=== PATIENT | male | born 1950 | race Caucasian/White ===

== ENCOUNTER → 2018-06-02 09:49 | Outpatient (CLI) | payer OTHER, SELFPAY ==
[2018-06-02 10:56] LABS: Neutrophils Absolute Auto 5400 /uL (3000-5900)
[2018-06-02 11:07] LABS: Alanine Aminotransferase 26 IU/L (21-72); Albumin 4.4 g/dL (3.5-5.0); Albumin Globulin Ratio 1.8 (1.0-2.8); Alkaline Phosphatase 38 U/L (38-126); Aspartate Aminotransferase 30 IU/L (17-59); BUN Creatinine Ratio 13.8 (6-22); Bilirubin Total 2.5 mg/dL (0.2-1.3); Blood Urea Nitrogen 11 mg/dL (9-20); Calcium 9.9 mg/dL (8.4-10.2); Carbon Dioxide 29 mmol/L (22-32); Chloride 104 mmol/L (98-107); Cholesterol 186 mg/dL (140-199); Estimated Glomerular Filt Rate > 60.0 mL/min (>60); Globulin 2.5 g/dL (1.7-4.1); Glucose 86 mg/dL (80-110); HDL Cholesterol 71 mg/dL (40-60); HEMOLYSIS < 15 (0-50); LDL Cholesterol Calculated 99 mg/dL (<100); Sodium 143 mmol/L (137-145); Total Protein 6.9 g/dL (6.3-8.2); Triglycerides 79 mg/dL (35-150)
[2018-06-02 11:11] LABS: Add Manual Diff / Slide Review NO; Basophils Percent Auto 0.7 % (0-2); Eosinophils Percent Auto 8.4 % (2-4); Hematocrit 43.8 % (41-53); Hemoglobin 16.1 g/dL (13.5-17.5); Lymphocytes Percent Auto 16.4 % (25-40); Mean Corpuscular Hemoglobin 34.6 PG (26-34); Mean Corpuscular Volume 94.2 fL (80-100); Neutrophils Percent Auto 67.5 % (50-75); Platelet Count 296 X10^3/uL (150-400); Red Blood Cell Count 4.65 X10^6/uL (4.5-5.9); Red Cell Distribution Width 14.4 % (11.6-14.8)
[2018-06-02 11:15] LABS: Mean Corpuscular HGB Conc 36.7 % (30-36)
[2018-06-02 12:16] LABS: Thyroid Stimulating Hormone 0.89 uIU/mL (0.47-4.68)
[2018-06-02 12:18] LABS: Prostate Specific Antigen Scrn 3.06 ng/mL (0.1-4.0)
== END ==
PROVIDERS: PCP Family Medicine; Visit Provider Family Medicine
DX: E80.4 Gilbert syndrome (principal); Z12.5 Encounter for screening for malignant neoplasm of prostate
CPT/HCPCS: 36415; 80053; 80061; 84443; 85025; G0103

== ENCOUNTER → 2018-07-15 10:43 | Outpatient (CLI) | payer OTHER, SELFPAY ==
[2018-07-16 14:22] LABS: PSA Free % 21 % (calc) (> 25); PSA, Total 1.4 ng/mL (< 4.1)
== END ==
PROVIDERS: PCP Family Medicine; Visit Provider Family Medicine
DX: R97.20 Elevated prostate specific antigen [PSA] (principal)
CPT/HCPCS: 36415; 84153; 84154

== ENCOUNTER → 2019-08-17 08:21 | Outpatient (CLI) | payer OTHER, SELFPAY ==
[2019-08-17 10:12] LABS: Prostate Specific Antigen Scrn 1.35 ng/mL (0.1-4.0)
== END ==
PROVIDERS: PCP Family Medicine; Visit Provider Family Medicine
DX: R97.20 Elevated prostate specific antigen [PSA] (principal); Z12.5 Encounter for screening for malignant neoplasm of prostate
CPT/HCPCS: 36415; G0103

== ENCOUNTER → 2021-02-13 08:52 | Outpatient (CLI) | payer OTHER, SELFPAY ==
[2021-02-13 10:25] LABS: Add Manual Diff / Slide Review NO; Basophils Absolute Auto 100 /uL (0-100); Basophils Percent Auto 0.7 % (0-2); Eosinophils Absolute Auto 400 /uL (0-450); Eosinophils Percent Auto 4.9 % (2-4); Hematocrit 43.8 % (41-53); Hemoglobin 15.9 g/dL (13.5-17.5); Lymphocytes Absolute Auto 1300 /uL (1100-4500); Mean Corpuscular HGB Conc 36.3 % (30-36); Mean Corpuscular Hemoglobin 34.8 PG (26-34); Monocytes Absolute Auto 600 /uL (0-900); Neutrophils Absolute Auto 5600 /uL (1500-7000); Neutrophils Percent Auto 70.4 % (50-75); Platelet Count 242 X10^3/uL (150-400); Red Blood Cell Count 4.56 X10^6/uL (4.5-5.9); Red Cell Distribution Width 14.4 % (11.6-14.8)
[2021-02-13 10:39] LABS: Alanine Aminotransferase 19 IU/L (<50); Albumin 4.2 g/dL (3.5-5.0); Albumin Globulin Ratio 1.6 (1.0-2.8); Alkaline Phosphatase 41 U/L (38-126); Aspartate Aminotransferase 31 IU/L (17-59); BUN Creatinine Ratio 17.7 (6-22); Bilirubin Total 3.2 mg/dL (0.2-1.3); Blood Urea Nitrogen 14 mg/dL (9-20); Calcium 10.2 mg/dL (8.4-10.2); Carbon Dioxide 24 mmol/L (22-32); Chloride 107 mmol/L (98-107); Cholesterol 196 mg/dL (140-199); Estimated Glomerular Filt Rate > 60.0 mL/min (>60); Globulin 2.7 g/dL (1.7-4.1); Glucose 101 mg/dL (80-110); HDL Cholesterol 83 mg/dL (40-60); HEMOLYSIS < 15 (0-50); LDL Cholesterol Calculated 96 mg/dL (<100); Potassium 4.4 mmol/L (3.4-5.1); Sodium 139 mmol/L (137-145); Total Protein 6.9 g/dL (6.3-8.2); Triglycerides 83 mg/dL (35-150)
[2021-02-13 11:05] LABS: Prostate Specific Antigen Scrn 1.12 ng/mL (0.1-4.0)
== END ==
PROVIDERS: PCP Family Medicine; Referring Provider Family Medicine; Visit Provider Family Medicine
DX: N13.8 Other obstructive and reflux uropathy (principal); I10 Essential (primary) hypertension; Z12.5 Encounter for screening for malignant neoplasm of prostate; N40.1 Benign prostatic hyperplasia with lower urinary tract symptoms; Z13.220 Encounter for screening for lipoid disorders
CPT/HCPCS: 36415; 80053; 80061; 85025; G0103

== ENCOUNTER → 2021-03-14 10:58 | Outpatient (CLI) | payer OTHER, SELFPAY ==
[2021-03-14 11:58] LABS: Alanine Aminotransferase 21 IU/L (<50); Albumin 3.9 g/dL (3.5-5.0); Albumin Globulin Ratio 1.3 (1.0-2.8); Alkaline Phosphatase 47 U/L (38-126); Aspartate Aminotransferase 39 IU/L (17-59); BUN Creatinine Ratio 6.9 (6-22); Bilirubin Total 1.5 mg/dL (0.2-1.3); Blood Urea Nitrogen 5 mg/dL (9-20); Calcium 9.2 mg/dL (8.4-10.2); Carbon Dioxide 24 mmol/L (22-32); Chloride 110 mmol/L (98-107); Estimated Glomerular Filt Rate > 60.0 mL/min (>60); Globulin 2.9 g/dL (1.7-4.1); Glucose 88 mg/dL (80-110); HEMOLYSIS < 15 (0-50); Potassium 4.5 mmol/L (3.4-5.1); Sodium 141 mmol/L (137-145); Total Protein 6.8 g/dL (6.3-8.2)
== END ==
PROVIDERS: PCP Family Medicine; Referring Provider Family Medicine; Visit Provider Family Medicine
DX: R10.11 Right upper quadrant pain (principal)
CPT/HCPCS: 36415; 80053

== ENCOUNTER → 2021-03-19 07:55 | Outpatient (CLI) | payer OTHER, SELFPAY ==
--- NOTE | 2021-03-19 07:56 | DI.US.S_ITS ---
PROCEDURE: US ABDOMEN COMPLETE INDICATIONS: RIGHT UPPER QUADRANT PAIN TECHNIQUE: Real-time scanning was performed of the abdominal and retroperitoneal organs, with image documentation. COMPARISON: None. FINDINGS: Technically difficult examination due to overlying bowel gas. Liver: Liver is normal in size and demonstrates diffuse increased echotexture. Gallbladder: There are multiple non-mobile gallstones impacted in the gallbladder. Gallbladder wall is thickened measuring 4.2 mm in thickness. Biliary ducts: Intrahepatic bile ducts are non-dilated. Extrahepatic bile duct is not visualized. Pancreas: Obscured by overlying bowel gas. Spleen: Spleen is normal in size and homogeneous in echotexture. Kidneys: Kidneys are normal in size and echotexture. Right kidney measures 12.1 cm long; left kidney measures 13.3 cm long. No hydronephrosis or nephrolithiasis. No solid masses. There are multiple renal cysts bilaterally. The largest cyst in the right kidney appears simple and exophytic arising from the inferior pole measuring 2.7 x 2.8 x 2.9 cm. A 4.4 by 5.1 x 4.1 cm simple exophytic cyst is seen in the inferior pole of the left kidney. Aorta: Visualized aorta is normal in caliber at less than 3 cm. Iliacs: Proximal common iliac arteries are normal in caliber at less than 2.5 cm. IVC: Not visualized. Miscellaneous: No free abdominal fluid. IMPRESSION: 1. Cholelithiasis. Suspect impacted stones in the gallbladder. Gallbladder wall appears thickened. Cannot rule out acute cholecystitis. If clinically indicated, HIDA scan may be helpful. 2. Diffusely increased hepatic echotexture. This finding is most likely secondary to hepatic fatty infiltration although other hepatocellular disease may have a similar appearance. Recommend clinical correlation. 3. Common bile duct and pancreas are not visualized due to overlying bowel gas. 4. Bilateral simple appearing renal cysts. Dictated by: Bala Alicia M.D. on 03/19/2021 at 10:11 Approved by: Bala Alicia M.D. on 03/19/2021 at 10:17
== END ==
PROVIDERS: PCP Family Medicine; Referring Provider Family Medicine; Visit Provider Family Medicine
DX: R10.11 Right upper quadrant pain (principal); K80.20 Calculus of gallbladder without cholecystitis without obstruction; N28.1 Cyst of kidney, acquired
CPT/HCPCS: 76700

== ENCOUNTER → 2022-02-13 11:00 | Outpatient (CLI) | payer OTHER, SELFPAY ==
--- NOTE | 2022-02-13 11:02 | DI.US.S_ITS ---
PROCEDURE: US PERIPH VENOUS LOW EXTREM RT INDICATIONS: right leg pain and right foot swelling, possible DVT, TECHNIQUE: Real-time imaging, as well as color and pulse Doppler interrogation, were performed of the lower extremity deep veins from the inguinal ligament to the popliteal fossa. COMPARISON: None. FINDINGS: The common femoral, femoral and popliteal veins are normally compressible, and free of intraluminal thrombus. Color and pulse Doppler demonstrate normal phasic intraluminal flow. There is normal augmentation response to distal compression maneuver. IMPRESSION: Negative for deep venous thrombosis. Dictated by: Martin Olivia M.D. on 02/13/2022 at 15:04 Approved by: Martin Olivia M.D. on 02/13/2022 at 15:05
== END ==
PROVIDERS: PCP Family Medicine; Referring Provider Family Medicine; Visit Provider Family Medicine
DX: M79.604 Pain in right leg (principal); M79.89 Other specified soft tissue disorders
CPT/HCPCS: 93971

== ENCOUNTER → 2022-02-15 08:00 | Outpatient (CLI) | payer OTHER, SELFPAY ==
[2022-02-15 08:39] LABS: Add Manual Diff / Slide Review NO; Basophils Absolute Auto 100 /uL (0-100); Basophils Percent Auto 0.9 % (0-2); Eosinophils Absolute Auto 400 /uL (0-450); Eosinophils Percent Auto 7.3 % (2-4); Hematocrit 40.8 % (41-53); Hemoglobin 14.8 g/dL (13.5-17.5); Lymphocytes Absolute Auto 800 /uL (1100-4500); Lymphocytes Percent Auto 12.3 % (25-40); Mean Corpuscular HGB Conc 36.2 % (30-36); Mean Corpuscular Hemoglobin 34.1 PG (26-34); Mean Corpuscular Volume 94.3 fL (80-100); Monocytes Absolute Auto 400 /uL (0-900); Monocytes Percent Auto 6.2 % (3-14); Neutrophils Absolute Auto 4500 /uL (1500-7000); Neutrophils Percent Auto 73.3 % (50-75); Platelet Count 220 X10^3/uL (150-400); Red Blood Cell Count 4.33 X10^6/uL (4.5-5.9); Red Cell Distribution Width 15.7 % (11.6-14.8); White Blood Cell Count 6.1 X10^3/uL (4.5-11.0)
[2022-02-15 09:11] LABS: Alanine Aminotransferase 22 IU/L (<50); Albumin 4.1 g/dL (3.5-5.0); Albumin Globulin Ratio 1.6 (1.0-2.8); Alkaline Phosphatase 41 U/L (38-126); Aspartate Aminotransferase 35 IU/L (17-59); BUN Creatinine Ratio 14.9 (6-22); Blood Urea Nitrogen 10 mg/dL (9-20); Calcium 9.2 mg/dL (8.4-10.2); Carbon Dioxide 25 mmol/L (22-32); Chloride 108 mmol/L (98-107); Cholesterol 172 mg/dL (140-199); Estimated Glomerular Filt Rate > 60 mL/min (>60); Globulin 2.6 g/dL (1.7-4.1); Glucose 102 mg/dL (80-110); HDL Cholesterol 75 mg/dL (40-60); HEMOLYSIS < 15 (0-50); LDL Cholesterol Calculated 81 mg/dL (<100); Potassium 4.2 mmol/L (3.4-5.1); Sodium 137 mmol/L (137-145); Total Protein 6.7 g/dL (6.3-8.2); Triglycerides 80 mg/dL (35-150)
[2022-02-15 09:39] LABS: Prostate Specific Antigen Scrn 1.02 ng/mL (0.1-4.0)
== END ==
PROVIDERS: PCP Family Medicine; Referring Provider Family Medicine; Visit Provider Family Medicine
DX: E80.4 Gilbert syndrome (principal); R17 Unspecified jaundice; Z12.5 Encounter for screening for malignant neoplasm of prostate; N13.8 Other obstructive and reflux uropathy; N40.1 Benign prostatic hyperplasia with lower urinary tract symptoms; Z13.220 Encounter for screening for lipoid disorders
CPT/HCPCS: 36415; 80053; 80061; 85025; G0103

== ENCOUNTER → 2022-03-17 10:04 | Outpatient (CLI) | payer OTHER, SELFPAY ==
--- NOTE | 2022-03-17 | DI.US.S_ITS ---
PROCEDURE: US EXTREMITY NONVASC LOWER RT INDICATIONS: LIPOMA OF HIP/POSSIBLE TUMOR ABOVE RT SI JOINT TECHNIQUE: Real-time scanning was performed of the right lower back, with image documentation. COMPARISON: None. FINDINGS: Focused ultrasound examination of right lower back at patient's reported area of palpable lump shows no discrete soft tissue mass or fluid collection. IMPRESSION: No abnormality is seen to account for patient's symptoms. Dictated by: Salomon Kauffman M.D. on 03/17/2022 at 12:41 Approved by: Salomon Kauffman M.D. on 03/17/2022 at 12:45
== END ==
PROVIDERS: PCP Family Medicine; Referring Provider Family Medicine; Visit Provider Family Medicine
DX: D17.20 Benign lipomatous neoplasm of skin and subcutaneous tissue of unspecified limb (principal)
CPT/HCPCS: 76882

== ENCOUNTER → 2023-03-17 08:04 | Outpatient (CLI) | payer OTHER, SELFPAY ==
[2023-03-17 09:41] LABS: Alanine Aminotransferase 18 IU/L (<50); Albumin 3.3 g/dL (3.5-5.0); Albumin Globulin Ratio 1.2 (1.0-2.8); Alkaline Phosphatase 68 U/L (38-126); Aspartate Aminotransferase 31 IU/L (17-59); BUN Creatinine Ratio 18.8 (6-22); Bilirubin Total 1.8 mg/dL (0.2-1.3); Blood Urea Nitrogen 13 mg/dL (9-20); Calcium 8.8 mg/dL (8.4-10.2); Carbon Dioxide 26 mmol/L (22-32); Chloride 103 mmol/L (98-107); Estimated Glomerular Filt Rate > 60 mL/min (>60); Globulin 2.7 g/dL (1.7-4.1); Glucose 92 mg/dL (80-110); HEMOLYSIS 18 (0-50); Potassium 4.1 mmol/L (3.4-5.1); Sodium 137 mmol/L (137-145)
[2023-03-17 10:06] LABS: Prostate Specific Antigen Scrn 4.35 ng/mL (0.1-4.0)
[2023-03-17 10:44] LABS: Hematocrit 35.6 % (41-53); Hemoglobin 12.7 g/dL (13.5-17.5); Mean Corpuscular HGB Conc 35.8 % (30-36); Mean Corpuscular Hemoglobin 32.8 PG (26-34); Mean Corpuscular Volume 91.7 fL (80-100); Platelet Count 469 X10^3/uL (150-400); Red Blood Cell Count 3.88 X10^6/uL (4.5-5.9); Red Cell Distribution Width 15.6 % (11.6-14.8); White Blood Cell Count 15.9 X10^3/uL (4.5-11.0)
[2023-03-17 10:50] LABS: Add Manual Diff / Slide Review YES
[2023-03-17 11:04] LABS: Neutrophils Absolute Manual 13515 /uL (3000-5900); Total Cells Counted 100
[2023-03-17 11:05] LABS: RBC Morphology Normal Morphology
== END ==
PROVIDERS: PCP Family Medicine; Referring Provider Family Medicine; Visit Provider Family Medicine
DX: Z12.5 Encounter for screening for malignant neoplasm of prostate; E78.5 Hyperlipidemia, unspecified; E80.4 Gilbert syndrome
CPT/HCPCS: 36415; 80053; 85007; 85025; G0103

== ENCOUNTER → 2023-06-02 08:19 | Outpatient (CLI) | payer OTHER, SELFPAY ==
[2023-06-04 07:35] LABS: PSA Free % 23.8 % (.); PSA, Total 1.3 ng/mL (0.0-4.0)
== END ==
PROVIDERS: PCP Family Medicine; Referring Provider Specialist; Visit Provider Specialist
DX: N13.8 Other obstructive and reflux uropathy (principal); N40.1 Benign prostatic hyperplasia with lower urinary tract symptoms; R97.20 Elevated prostate specific antigen [PSA]
CPT/HCPCS: 36415; 84153; 84154

== ENCOUNTER → 2023-06-16 15:47 | Outpatient (CLI) | payer OTHER, SELFPAY | PROVIDERS: PCP Family Medicine; Visit Provider Specialist | DX: N40.1 Benign prostatic hyperplasia with lower urinary tract symptoms (principal); N13.8 Other obstructive and reflux uropathy | CPT/HCPCS: 51798; 81002; 87086; 99214 ==

== ENCOUNTER → 2023-07-02 07:52 | Outpatient (CLI) | payer OTHER, SELFPAY ==
[2023-07-02 08:15] LABS: Add Manual Diff / Slide Review NO; Basophils Absolute Auto 100 /uL (0-100); Basophils Percent Auto 1.3 % (0-2); Eosinophils Absolute Auto 400 /uL (0-450); Hematocrit 40.2 % (41-53); Hemoglobin 14.3 g/dL (13.5-17.5); Lymphocytes Absolute Auto 1400 /uL (1100-4500); Mean Corpuscular HGB Conc 35.7 % (30-36); Mean Corpuscular Hemoglobin 31.8 PG (26-34); Mean Corpuscular Volume 89.2 fL (80-100); Monocytes Absolute Auto 800 /uL (0-900); Monocytes Percent Auto 7.4 % (3-14); Neutrophils Absolute Auto 8000 /uL (1500-7000); Neutrophils Percent Auto 74.3 % (50-75); Platelet Count 251 X10^3/uL (150-400); Red Blood Cell Count 4.51 X10^6/uL (4.5-5.9); Red Cell Distribution Width 18.4 % (11.6-14.8); White Blood Cell Count 10.7 X10^3/uL (4.5-11.0)
== END ==
PROVIDERS: PCP Family Medicine; Referring Provider Family Medicine; Visit Provider Family Medicine
DX: D50.9 Iron deficiency anemia, unspecified (principal)
CPT/HCPCS: 36415; 85025

== ENCOUNTER → 2023-08-19 08:22 | Outpatient (CLI) | payer OTHER, SELFPAY ==
[2023-08-19 09:43] LABS: Prostate Specific Antigen 1.53 ng/mL (0.10-4.00)
== END ==
PROVIDERS: PCP Family Medicine; Referring Provider Specialist; Visit Provider Specialist
DX: R97.20 Elevated prostate specific antigen [PSA] (principal); Z87.448 Personal history of other diseases of urinary system; N40.1 Benign prostatic hyperplasia with lower urinary tract symptoms; N13.8 Other obstructive and reflux uropathy
CPT/HCPCS: 36415; 84153

== ENCOUNTER → 2023-08-27 09:25 | Outpatient (CLI) | payer OTHER, SELFPAY | PROVIDERS: PCP Family Medicine; Visit Provider Specialist | DX: N40.1 Benign prostatic hyperplasia with lower urinary tract symptoms (principal); N13.8 Other obstructive and reflux uropathy; Z87.448 Personal history of other diseases of urinary system; Z87.898 Personal history of other specified conditions | CPT/HCPCS: 51798; 81002; 87086; 99213 ==

== ENCOUNTER → 2023-11-04 07:54 | Outpatient (CLI) | payer OTHER, SELFPAY ==
[2023-11-04 09:08] LABS: Add Manual Diff / Slide Review NO; Basophils Absolute Auto 0 /uL (0-100); Basophils Percent Auto 0.2 % (0-2); Eosinophils Absolute Auto 100 /uL (0-450); Hematocrit 33.1 % (41-53); Hemoglobin 11.7 g/dL (13.5-17.5); Lymphocytes Absolute Auto 800 /uL (1100-4500); Mean Corpuscular HGB Conc 35.4 % (30-36); Mean Corpuscular Hemoglobin 29.8 PG (26-34); Mean Corpuscular Volume 84.4 fL (80-100); Monocytes Absolute Auto 800 /uL (0-900); Monocytes Percent Auto 5.4 % (3-14); Neutrophils Absolute Auto 12400 /uL (1500-7000); Neutrophils Percent Auto 87.4 % (50-75); Platelet Count 446 X10^3/uL (150-400); Red Blood Cell Count 3.92 X10^6/uL (4.5-5.9); White Blood Cell Count 14.1 X10^3/uL (4.5-11.0)
[2023-11-04 09:25] LABS: Erythrocyte Sedimentation Rate 36 MM/HR (0-15)
[2023-11-04 09:48] LABS: Vitamin D 25 Hydroxy (D3) 39.7 ng/mL (30.0-100.0)
[2023-11-04 10:03] LABS: HEMOLYSIS < 15 (0-50); Iron 54 ug/dL (49-181)
[2023-11-04 10:05] LABS: Alanine Aminotransferase 11 IU/L (<50); Albumin 3.7 g/dL (3.5-5.0); Albumin Globulin Ratio 1.5 (1.0-2.8); Alkaline Phosphatase 50 U/L (38-126); Aspartate Aminotransferase 19 IU/L (17-59); BUN Creatinine Ratio 27.1 (6-22); Bilirubin Total 2.2 mg/dL (0.2-1.3); Blood Urea Nitrogen 16 mg/dL (9-20); Calcium 9.4 mg/dL (8.4-10.2); Carbon Dioxide 22 mmol/L (22-32); Chloride 106 mmol/L (98-107); Cholesterol 127 mg/dL (140-199); Creatine Kinase < 20 U/L (55-170); Estimated Glomerular Filt Rate > 60 mL/min (>60); Globulin 2.5 g/dL (1.7-4.1); Glucose 101 mg/dL (80-110); HDL Cholesterol 33 mg/dL (40-60); HEMOLYSIS < 15 (0-50); LDL Cholesterol Calculated 58 mg/dL (<100); Potassium 4.1 mmol/L (3.4-5.1); Sodium 136 mmol/L (137-145); Total Protein 6.2 g/dL (6.3-8.2); Triglycerides 178 mg/dL (35-150)
[2023-11-04 10:14] LABS: Percent Iron Saturation 19 % (20-50); Total Iron Binding Capacity 290 ug/dL (261-462); Transferrin 225 mg/dL (206-381)
[2023-11-04 10:36] LABS: TSH w/ Reflex to FT4 2.37 uIU/mL (0.47-4.68)
[2023-11-04 10:40] LABS: Ferritin 485 ng/mL (18-464)
[2023-11-05 17:05] LABS: Hep C Virus Ab w/Reflex Quant NEGATIVE s/c (NEGATIVE)
== END ==
PROVIDERS: PCP Family Medicine; Referring Provider Family Medicine; Visit Provider Family Medicine
DX: M79.10 Myalgia, unspecified site (principal); D50.9 Iron deficiency anemia, unspecified; R17 Unspecified jaundice; E80.4 Gilbert syndrome; Z13.220 Encounter for screening for lipoid disorders; G43.909 Migraine, unspecified, not intractable, without status migrainosus; Z11.59 Encounter for screening for other viral diseases
CPT/HCPCS: 36415; 80053; 80061; 82306; 82550; 82728; 83540; 83550; 83735; 84443; 85025; 85651; 86803

== ENCOUNTER → 2023-12-01 09:42 | Outpatient (CLI) | payer OTHER, SELFPAY ==
[2023-12-01 10:23] LABS: Appearance Urine UA SL CLOUDY; Bilirubin Urine UA NEGATIVE (NEGATIVE); Color Urine UA YELLOW; Glucose Urine UA NEGATIVE (Negative); Ketones Urine UA 2+ (NEGATIVE); Leukocyte Esterase Urine UA TRACE (NEGATIVE); Nitrite Urine UA NEGATIVE (Negative); Occult Blood Urine UA 2+ (Negative); Protein Urine UA 2+ (Negative); Specific Gravity Urine UA 1.025 (1.000-1.035); pH Urine UA 6.5 (4.5-8.0)
[2023-12-01 10:32] LABS: Reticulocyte Count, Percent 3.2 % (0.9-2.6)
[2023-12-01 10:33] LABS: Add Manual Diff / Slide Review NO; Basophils Absolute Auto 100 /uL (0-100); Basophils Percent Auto 0.4 % (0-2); Eosinophils Absolute Auto 200 /uL (0-450); Eosinophils Percent Auto 0.9 % (2-4); Hematocrit 37.5 % (41-53); Hemoglobin 12.8 g/dL (13.5-17.5); Lymphocytes Absolute Auto 1300 /uL (1100-4500); Lymphocytes Percent Auto 6.1 % (25-40); Mean Corpuscular Hemoglobin 27.3 PG (26-34); Mean Corpuscular Volume 80.3 fL (80-100); Monocytes Absolute Auto 1500 /uL (0-900); Monocytes Percent Auto 6.7 % (3-14); Neutrophils Absolute Auto 18800 /uL (1500-7000); Neutrophils Percent Auto 85.9 % (50-75); Platelet Count 541 X10^3/uL (150-400); Red Blood Cell Count 4.67 X10^6/uL (4.5-5.9); White Blood Cell Count 21.9 X10^3/uL (4.5-11.0)
[2023-12-01 10:38] LABS: Bacteria Urine Occasional (0-1); RBC Urine 5-10/HPF (0-5/HPF); Squamous Epithelial Cell Urine None Seen (0-5/HPF); Urine Volume 10mL (spun); WBC Urine 10-30/HPF (0-5/HPF)
[2023-12-01 10:39] LABS: Culture Indicated Urine Specimen Cultured; Mucus Urine 2+ (Negative)
[2023-12-01 10:45] LABS: C-Reactive Protein Quant 4.7 mg/dL (<1.0); Lactate Dehydrogenase 120 U/L (120-246)
[2023-12-01 10:46] LABS: Rheumatoid Factor < 8.6 IU/mL (<12.0)
[2023-12-01 10:56] LABS: Erythrocyte Sedimentation Rate 38 MM/HR (0-15)
[2023-12-02 03:52] LABS: Haptoglobin 188 mg/dL (34-355)
[2023-12-03 20:12] LABS: CCP Antibodies IgG/IgA 0 units (0-19)
[2023-12-04 16:11] LABS: ANA Screen, IFA Negative (.)
== END ==
PROVIDERS: PCP Family Medicine; Referring Provider Family Medicine; Visit Provider Family Medicine
DX: D64.9 Anemia, unspecified (principal); M79.10 Myalgia, unspecified site; R17 Unspecified jaundice
CPT/HCPCS: 36415; 81001; 83010; 83615; 85025; 85045; 85651; 86038; 86140; 86200; 86430; 87086

== ENCOUNTER → 2023-12-21 09:57 | Outpatient (CLI) | payer OTHER, SELFPAY ==
--- NOTE | 2023-12-21 | DI.CT.S_ITS ---
PROCEDURE: CT CHEST ABD PEL W CON INDICATIONS: Abnormal weight loss TECHNIQUE: After the administration of intravenous contrast, 5 mm thick sections acquired from the lung apices to the symphysis. 5 mm coronal and sagittal reformats were performed, with additional 7 mm MIP reformats through the lungs. For radiation dose reduction, the following was used: automated exposure control, adjustment of mA and/or kV according to patient size. COMPARISON: None. FINDINGS: Image quality: Excellent. CHEST: Lower Neck: No enlarged lymph nodes. Thyroid: No thyroid nodules which require sonographic follow up, per consensus guidelines. Axillae: No enlarged lymph nodes. Chest Wall: Unremarkable. Lungs and Pleura: Jdyj-ha-wtxlmcll right pleural effusion. 2 mm right lower lobe pulmonary nodule, image 174/3, indeterminate. 1 mm left upper lobe pulmonary nodule, image 90/3, also indeterminate. Heart: Heart size is normal. [id number] pericardial effusion. Severe coronary artery calcifications. Thoracic Vessels: Enlargement of the right main pulmonary artery suggest the possibility of pulmonary arterial hypertension. Aorta is of normal caliber. Mediastinum and Vianey: No enlarged lymph nodes. Esophagus: No wall thickening. Small hiatal hernia. Reflux into the distal esophagus of contrast.. ABDOMEN: Liver: No solid mass. Gallbladder: There is a calcified gallstone present in the gallbladder. The gallbladder is decompressed. Subjacent to this calcified gallstone are multiple foci of air. These may be present within stones in the gallbladder. Biliary ducts: No biliary dilation. Pancreas: No ductal dilation. Spleen: Splenomegaly. Spleen measures 15.1 x 8.0 x 18.1 cm. Adrenal Glands: No adrenal nodules. Kidneys and Ureters: No hydronephrosis. No solid mass. No complex renal cystic lesion which requires follow up. Stomach and Bowel: Normal colonic caliber, without significant wall thickening. Peritoneum: No abnormal intraperitoneal fluid. No free air. Ventral Wall: No significant ventral hernia. Abdominal Nodes: No retroperitoneal or mesenteric adenopathy by size criteria. Vessels: Aorta and inferior vena cava are normal in size. PELVIS: Pelvic Organs: Prostate enlargement. Bladder: There are numerous polypoid bladder masses consistent with multifocal bladder carcinoma. The largest is a left lateral wall mass which measures approximately 1.9 x 1.8 x 2.3 cm. There are perhaps 10 different polypoid bladder lesions, many of which are tiny. Pelvic Nodes: No enlarged lymph nodes. Miscellaneous: No inguinal hernias are seen. Bones: Lytic destructive lesion involving the right sacrum measuring 5.8 x 3.6 x 5.5 cm with involvement of the right S1 and S2 sacral alae and nerve root impingement. IMPRESSION: 1. There are numerous polypoid bladder masses, consistent with multifocal bladder cancer. 2. Large right sacral metastatic destructive lesion with involvement of S1 on S2 in impingement on these nerve roots. 3. Fairly impressive splenomegaly. 4. Cholelithiasis. 5. Small areas of air immediately anterior to the right lobe of the liver are presumed to be related to the gallbladder. 5. Nlgp-pn-prsdosyy right pleural effusion. 6. Jxdj-yb-wzeliooq pericardial effusion and severe coronary artery calcifications. 7. Question pulmonary arterial hypertension. 8. Small hiatal hernia with gastroesophageal reflux. Dictated by: Crow Arango M.D. on 12/21/2023 at 15:17 Approved by: Crow Arango M.D. on 12/21/2023 at 15:35
[2023-12-21 10:14] LABS: Add Manual Diff / Slide Review NO; Basophils Absolute Auto 100 /uL (0-100); Basophils Percent Auto 0.4 % (0-2); Eosinophils Absolute Auto 200 /uL (0-450); Eosinophils Percent Auto 1.3 % (2-4); Hemoglobin 11.6 g/dL (13.5-17.5); Lymphocytes Absolute Auto 800 /uL (1100-4500); Lymphocytes Percent Auto 5.8 % (25-40); Mean Corpuscular HGB Conc 34.2 % (30-36); Mean Corpuscular Hemoglobin 26.8 PG (26-34); Mean Corpuscular Volume 78.5 fL (80-100); Monocytes Absolute Auto 1100 /uL (0-900); Monocytes Percent Auto 8.2 % (3-14); Neutrophils Absolute Auto 11600 /uL (1500-7000); Neutrophils Percent Auto 84.3 % (50-75); Platelet Count 391 X10^3/uL (150-400); Red Blood Cell Count 4.33 X10^6/uL (4.5-5.9); Red Cell Distribution Width 17.4 % (11.6-14.8); White Blood Cell Count 13.8 X10^3/uL (4.5-11.0)
[2023-12-21 10:30] LABS: Estimated Glomerular Filt Rate > 60 mL/min (>60)
[2023-12-21 10:37] LABS: Alanine Aminotransferase 8 IU/L (<50); Albumin Globulin Ratio 1.7 (1.0-2.8); Alkaline Phosphatase 53 U/L (38-126); Aspartate Aminotransferase 14 IU/L (17-59); BUN Creatinine Ratio 40.5 (6-22); Bilirubin Total 1.7 mg/dL (0.2-1.3); Blood Urea Nitrogen 32 mg/dL (9-20); Calcium 9.7 mg/dL (8.4-10.2); Carbon Dioxide 28 mmol/L (22-32); Chloride 103 mmol/L (98-107); Estimated Glomerular Filt Rate > 60 mL/min (>60); Globulin 2.3 g/dL (1.7-4.1); Glucose 122 mg/dL (80-110); HEMOLYSIS < 15 (0-50); Potassium 4.5 mmol/L (3.4-5.1); Sodium 136 mmol/L (137-145); Total Protein 6.3 g/dL (6.3-8.2)
== END ==
PROVIDERS: Radiology Diagnostic Radiology; PCP Family Medicine; Referring Provider Family Medicine; Visit Provider Family Medicine
DX: C79.51 Secondary malignant neoplasm of bone (principal); C80.1 Malignant (primary) neoplasm, unspecified; N32.9 Bladder disorder, unspecified; J90 Pleural effusion, not elsewhere classified; R16.1 Splenomegaly, not elsewhere classified; Z01.812 Encounter for preprocedural laboratory examination; K80.20 Calculus of gallbladder without cholecystitis without obstruction; I31.39 Other pericardial effusion (noninflammatory); R63.4 Abnormal weight loss; D75.839 Thrombocytosis, unspecified; D72.828 Other elevated white blood cell count; D64.9 Anemia, unspecified; R53.83 Other fatigue; N40.0 Benign prostatic hyperplasia without lower urinary tract symptoms; I25.10 Atherosclerotic heart disease of native coronary artery without angina pectoris; K44.9 Diaphragmatic hernia without obstruction or gangrene; K21.9 Gastro-esophageal reflux disease without esophagitis
CPT/HCPCS: 36415; 71260; 74177; 80053; 82565; 85025; Q9967

== ENCOUNTER → 2023-12-29 08:56 | Outpatient (CLI) | payer OTHER, SELFPAY | PROVIDERS: PCP Family Medicine; Visit Provider Specialist | DX: C67.9 Malignant neoplasm of bladder, unspecified (principal); C79.51 Secondary malignant neoplasm of bone; N32.89 Other specified disorders of bladder | CPT/HCPCS: 87086 ==

== ENCOUNTER 2024-01-02 07:56 | Inpatient (IN) | payer OTHER, SELFPAY ==
[2024-01-02] VITALS (11 sets, daily range): BP systolic 92–103; BP diastolic 55–64; PULSE 93–103; RESP 13–20; TEMP 37.1; O2SAT 92–100; BMI 23.6
--- NOTE | 2024-01-02 07:57 | DI.CT.S_ITS ---
PROCEDURE: CT HEAD/BRAIN WO CON INDICATIONS: Confusion, fall TECHNIQUE: Noncontrast 4.5 mm thick angled axial sections acquired from the foramen magnum to the vertex, with coronal and sagittal reformats. For radiation dose reduction, the following was used: automated exposure control, adjustment of mA and/or kV according to patient size. COMPARISON: None. FINDINGS: Image quality: Diagnostic. CSF spaces: Basal cisterns are patent. No extra-axial fluid collections. The ventricles are symmetric in size and shape. Brain: No intracranial bleeds or masses. There is cerebral volume loss for age, with resultant ventricular and sulcal prominence. There are periventricular and deep white matter chronic small vessel ischemic changes. There is intracranial internal carotid artery atherosclerosis. Skull and face: Calvarium and visualized facial bones appear intact, without suspicious lesions. Sinuses: Trace fluid or mucus at the base of both maxillary sinuses. Visualized sinuses and mastoids are otherwise clear. IMPRESSION: 1. No CT evidence of acute intracranial trauma. 2. No significant soft tissue injury or underlying fracture. Dictated by: Thais Natarajan M.D. on 01/02/2024 at 8:58 Approved by: Thais Natarajan M.D. on 01/02/2024 at 9:01
--- NOTE | 2024-01-02 08:28 | ED.FALL ---
HPI - Fall General Chief Complaint: Fall Stated Complaint: GLF hit head Time Seen by Provider: 01/02/24 07:56 Source: family and EMS Mode of arrival: EMS Limitations: other (Confusion) History of Present Illness HPI Narrative: Patient is a 73-year-old male. Is currently undergoing workup for bladder cancer. Is not currently receiving any specific treatment. Is here for evaluation this morning with family by EMS for evaluation of increasing confusion over the past several days/weeks and a fall this morning. This was an unwitnessed fall. He was getting out of bed most likely to go to the bathroom where he fell and did hit his head on the wall. There was no reported loss of consciousness. Patient is unable to provide any HPI. He reports no headache, or any other associated symptoms. Potentially some concern about a urinary tract infection as he has had a increase in urination recently. He also had a recent cystoscopy. There is concern about the family with the patient being able to take care of himself at home. Related Data Home Medications Medication Instructions Recorded Confirmed aspirin 81 mg tablet,delayed 81 mg PO DAILY 01/08/22 12/29/23 release naproxen sodium 220 mg tablet 440 mg PO ONCE PRN 03/26/23 12/29/23 vitamins A,C,S-llvh-sytlqm 4,296 1 cap PO BID 03/26/23 12/29/23 mcg-226 mg-90 mg capsule (ICaps AREDS) tamsulosin 0.4 mg capsule 0.4 mg PO DAILY 10/27/23 12/29/23 Previous Rx's Medication Instructions Recorded triamcinolone acetonide 0.1 % See Rx Instructions .Route 01/08/22 topical cream .COMPLEX #30 grams sumatriptan succinate 100 mg tablet 100 mg PO ONCE #12 tabs 04/15/23 sumatriptan succinate 6 mg/0.5 mL 6 mg (0.5 mL) SUBCUT Q1-4H #5 mL 08/21/23 subcutaneous pen injector omeprazole 20 mg capsule,delayed See Rx Instructions .Route 09/28/23 release .COMPLEX #90 caps propranolol 40 mg tablet See Rx Instructions .Route 11/13/23 .COMPLEX #180 tabs duloxetine 60 mg capsule,delayed 60 mg PO DAILY #30 caps 12/09/23 release peg 3350-electrolytes 236 240 ml PO Q10M #4,000 mL 12/17/23 gram-22.74 gram-6.74 gram-5.86 gram solution (Golytely) oxycodone 5 mg tablet 5 mg PO BID PRN pain #60 tabs 12/22/23 Allergies Allergy/AdvReac Type Severity Reaction Status Date / Time Penicillins [PENICILLINS] Allergy Severe BREATHING Verified 12/22/23 11:02 PROBLEMS AND RASH Review of Systems Review of Systems ROS Unobtainable: Unobtainable due to mental condition Patient History Medical History Microscopic hematuria Malignant neoplasm of bladder neck History of right inguinal hernia (04/04/11) History of elevated PSA Microcytic anemia Somatic dysfunction of lower extremity Lipoma of hip Anxiety about health Right leg pain Elevated bilirubin Gilbert syndrome Hx of hematuria BPH w urinary obs/LUTS History of colon polyps Seasonal allergies Migraines Foot pain (~1989) Rosacea Mumps Measles Chicken pox GERD (gastroesophageal reflux disease) (~1999) Surgical History Anesthesia History of skin surgery (~2012) Retinal detachment History of cataract removal with insertion of prosthetic lens (~2013) History of cataract removal with insertion of prosthetic lens (~2012) Status post hernia repair (~1969) Family History Father No problems noted. Mother No problems noted. Social History Smoking Status: Former smoker Smoking Status: Former smoker alcohol intake frequency: 0-2 drinks per day Substance Use Type: marijuana Exam Initial Vital Signs Initial Vital Signs: Vital Signs Pulse Rate 103 H 01/02/24 08:00 Pulse Oximetry 92 01/02/24 08:00 Const General: cooperative, No in distress, No combative and No disheveled HENMT Head: normal to inspection, normocephalic and No contusion Resp Effort & Inspection: normal respiratory effort Auscultation: clear to auscultation bilaterally Cardio Rate: regular rate Rhythm: regular rhythm GI Inspection: normal to inspection and non-distended Neuro General: patient alert, patient awake and moves all extremities Other: Patient was confused about date, location, why he is here. Extrem Other: No gross deformities. Moves all extremities without apparent discomfort Scores GCS Zane coma scale eye opening: Spontaneous [place] coma scale verbal response: Confused [place] coma scale motor response: Obey commands [place] coma scale total score: 14 Course Orders Ordered: ED Orders 01/02/24 07:57 CT head/brain wo con Stat 01/02/24 07:58 EKG-12 Lead Stat 01/02/24 08:28 Consult to [facility] [place] [facility] Stat 01/02/24 09:15 Urinalysis and Microscopic Stat Urine Culture Stat Urine Drug Screen, Rapid Stat 01/02/24 09:20 Complete Blood Count AUTO DIFF Stat Comprehensive Metabolic Panel Stat Ethanol (ETOH) Stat Lactate (Lactic Acid) Stat Lipase Stat Procalcitonin Stat 01/02/24 09:58 Blood Culture Stat 01/02/24 10:01 XR chest 1V Stat 01/02/24 10:06 Consult to Physician Stat 01/02/24 10:07 Consult to Physician Stat 01/02/24 10:13 Type and Screen Stat Sodium Chloride (Normal Saline 0.9%) 1,000 mls @ 125 mls/hr IV CONT ZOHRA Last Admin: 01/02/24 10:04 Dose: 125 mls/hr Documented By: BRII Sodium Chloride (Sodium Chloride 0.9% Flush) 10 ml IV PRN PRN PRN Reason: Flush Last Admin: 01/02/24 10:06 Dose: 10 ml Documented By: Admin: 01/02/24 10:05 Dose: 10 ml Documented By: BRII Sodium Chloride (Sodium Chloride 0.9% Flush) 10 ml IV BID ZOHRA Discontinued Medications Ceftriaxone Sodium 1,000 mg/ (Sodium Chloride) 100 mls @ 200 mls/hr IV NOW ONE Stop: 01/02/24 09:52 Last Infusion: 01/02/24 10:44 Dose: Infused Documented By: Admin: 01/02/24 10:04 Dose: 200 mls/hr Documented By: BIRI Vital Signs Vital signs: Vital Signs - 8 hr 01/02/24 08:00 01/02/24 08:01 01/02/24 08:01 Temperature Pulse Rate 103 H 103 H Respiratory Rate Blood Pressure 93/64 Pulse Oximetry 92 99 Oxygen Delivery Method 01/02/24 08:06 01/02/24 08:06 01/02/24 08:13 Temperature 98.8 F Pulse Rate 102 H 103 H Respiratory Rate 17 16 Blood Pressure 92/64 92/64 Pulse Oximetry 99 99 Oxygen Delivery Method Room Air 01/02/24 08:39 01/02/24 08:40 01/02/24 08:40 Temperature Pulse Rate 103 H 103 H Respiratory Rate 19 15 Blood Pressure 103/61 Pulse Oximetry 97 98 Oxygen Delivery Method 01/02/24 09:00 01/02/24 09:30 01/02/24 10:00 Temperature Pulse Rate 102 H 98 H 97 H Respiratory Rate 13 17 20 Blood Pressure Pulse Oximetry 99 99 100 Oxygen Delivery Method MDM - Fall Lab Data Attestation: I reviewed the patient's lab results. 01/02/24 09:20 01/02/24 09:20 Labs: Lab Results 01/02/24 01/02/24 01/02/24 Range/Units 09:15 09:15 09:20 WBC 17.3 H (4.5-11.0) X10^3/uL RBC 3.30 L (4.5-5.9) X10^6/uL Hgb 8.7 L (13.5-17.5) g/dL Hct 25.2 L (41-53) % MCV 76.6 L (80-100) fL MCH 26.3 (26-34) PG MCHC 34.3 (30-36) % RDW 17.6 H (11.6-14.8) % Plt Count 293 (150-400) X10^3/uL Neut % (Auto) 90.0 H (50-75) % Lymph % (Auto) 3.3 L (25-40) % [place] % (Auto) 6.3 (3-14) % Eos % (Auto) 0.2 L (2-4) % Baso % (Auto) 0.2 (0-2) % Neut # (Auto) 10286 H (5700-2863) /uL Lymph # (Auto) 600 L (4014-1046) /uL [place] # (Auto) 1100 H (0-900) /uL Eos # (Auto) 0 (0-450) /uL Baso # (Auto) 0 (0-100) /uL Sodium 132 L (137-145) mmol/L Potassium 4.6 (3.4-5.1) mmol/L Chloride 100 (98-107) mmol/L Carbon Dioxide 28 (22-32) mmol/L BUN 18 (9-20) mg/dL Creatinine 0.70 (0.66-1.25) mg/dL Estimated GFR > 60 (>60) mL/min BUN/Creatinine Ratio 25.7 H (6-22) Glucose 105 (80-110) mg/dL Lactate 1.2 (0.7-2.1) mmol/L Calcium 9.0 (8.4-10.2) mg/dL Total Bilirubin 1.5 H (0.2-1.3) mg/dL AST 19 (17-59) IU/L ALT 12 (<50) IU/L Alkaline Phosphatase 79 (38-126) U/L Total Protein 6.2 L (6.3-8.2) g/dL Albumin 3.6 (3.5-5.0) g/dL Globulin 2.6 (1.7-4.1) g/dL Albumin/Globulin Ratio 1.4 (1.0-2.8) Lipase 46 (23-300) U/L Procalcitonin 0.27 (<0.5) ng/mL Urine Color Yellow Urine Appearance Sl cloudy Urine pH 6.0 Normal (4.5-8.0) Ur Specific [place] 1.020 (1.000-1.035) Urine Protein 2+ H (Negative) Urine Glucose (UA) Negative (Negative) g/dL Urine Ketones Trace H (NEGATIVE) Urine Occult Blood 3+ H (Negative) Urine Nitrate Negative (Negative) Urine Bilirubin Negative (NEGATIVE) Urine Urobilinogen 1.0 (0.2) E.U./dL Ur Leukocyte Esterase Trace H (NEGATIVE) Urine RBC 30-100/hpf H (0-5/HPF) Urine WBC 5-10/hpf H (0-5/HPF) Ur Squamous Epith Cells 0-1 /hpf (0-5/HPF) Amorphous Sediment 2+ Urine Bacteria Moderate (10-30) H (None) Urine Mucus 1+ H (Negative) Ur Culture Indicated? Specimen cultured Vol Urine Centrifuged 10ml (spun) U Opiates 300ng/mL cut Positive H (Negative) Ur Oxycodone Screen Positive H (Negative) Urine Methadone Screen Negative (Negative) Ur Barbiturates Screen Negative (Negative) U Tricyclic Antidepress Negative (Negative) Ur Phencyclidine Scrn Negative (Negative) Ur Amphetamines Screen Negative (Negative) U Methamphetamines Scrn Negative (Negative) Ur MDMA Scrn (Ecstasy) Negative (Negative) U Benzodiazepines Scrn Negative (Negative) Urine Cocaine Screen Negative (Negative) U Marijuana (THC) Screen Negative (Negative) Urine Specific [place] Normal (Normal) Ethyl Alcohol < 10 ( - 10) mg/dL Ur Creatinine Normal (Normal) Imaging Data CT scan - head: Radiologist's Impression: PROCEDURE: CT HEAD/BRAIN WO CON INDICATIONS: Confusion, fall TECHNIQUE: Noncontrast 4.5 mm thick angled axial sections acquired from the foramen magnum to the vertex, with coronal and sagittal reformats. For radiation dose reduction, the following was used: automated exposure control, adjustment of mA and/or kV according to patient size. COMPARISON: None. FINDINGS: Image quality: Diagnostic. CSF spaces: Basal cisterns are patent. No extra-axial fluid collections. The ventricles are symmetric in size and shape. Brain: No intracranial bleeds or masses. There is cerebral volume loss for age, with resultant ventricular and sulcal prominence. There are periventricular and deep white matter chronic small vessel ischemic changes. There is intracranial internal carotid artery atherosclerosis. Skull and face: Calvarium and visualized facial bones appear intact, without suspicious lesions. Sinuses: Trace fluid or mucus at the base of both maxillary sinuses. Visualized sinuses and mastoids are otherwise clear. IMPRESSION: 1. No CT evidence of acute intracranial trauma. 2. No significant soft tissue injury or underlying fracture. Chest x-ray: Radiologist's Impression: PROCEDURE: XR CHEST 1V INDICATIONS: eval for pna TECHNIQUE: One view of the chest was acquired. COMPARISON: [facility], CR, XR CHEST 1VW, 02/26/2016, 15:14. [facility], CT, CT HEAD/BRAIN WO CON, 01/02/2024, 8:10. FINDINGS: Surgical changes and devices: None. Lungs and pleura: There is a small right-sided pleural effusion. On this semiupright study, no large pneumothorax can be seen. Low lung volumes are noted. This causes a crowded appearance to the lung markings and limits evaluation. Mediastinum: Mediastinal contours appear normal. Heart size is normal. Bones and chest wall: No suspicious bony lesions. Age-appropriate bony degenerative changes are seen. Overlying soft tissues appear unremarkable. IMPRESSION: Small right-sided pleural effusion. Low lung volumes. ECG Data Attestation: I personally reviewed and interpreted this ECG as follows: Interpretation: Sinus tachycardia Ventricular rate of 101 Left axis deviation Normal QRS No ST T wave changes MDM Narrative Medical decision making narrative: Patient is confused. GCS of 15. No chest pain. No shortness of breath. Head CT is unremarkable. Urinalysis is consistent with a urinary tract infection. He also has a leukocytosis. Lactate is normal. Not hypotensive. Blood cultures obtained. Antibiotics administered. Discussed the case with the family. Admission to the hospital warranted for his UTI and confusion. Discussed the case with Dr. Torres he was on-call for the patient's primary doctor. Will admit for further evaluation and treatment. Discharge Plan Departure Patient Disposition: Admitted As Inpatient Clinical Impression: Altered mental status, Urinary tract infection, Bladder cancer Admit Date/Time: 01/02/24 10:19 Admit Provider: Asuncion Torres
[2024-01-02 09:26] LABS: Appearance Urine UA SL CLOUDY; Bilirubin Urine UA NEGATIVE (NEGATIVE); Color Urine UA YELLOW; Glucose Urine UA NEGATIVE (Negative); Ketones Urine UA TRACE (NEGATIVE); Leukocyte Esterase Urine UA TRACE (NEGATIVE); Nitrite Urine UA NEGATIVE (Negative); Occult Blood Urine UA 3+ (Negative); Protein Urine UA 2+ (Negative)
[2024-01-02 09:31] LABS: Add Manual Diff / Slide Review NO; Basophils Absolute Auto 0 /uL (0-100); Basophils Percent Auto 0.2 % (0-2); Eosinophils Absolute Auto 0 /uL (0-450); Eosinophils Percent Auto 0.2 % (2-4); Hematocrit 25.2 % (41-53); Hemoglobin 8.7 g/dL (13.5-17.5); Lymphocytes Absolute Auto 600 /uL (1100-4500); Lymphocytes Percent Auto 3.3 % (25-40); Mean Corpuscular HGB Conc 34.3 % (30-36); Mean Corpuscular Hemoglobin 26.3 PG (26-34); Mean Corpuscular Volume 76.6 fL (80-100); Monocytes Absolute Auto 1100 /uL (0-900); Monocytes Percent Auto 6.3 % (3-14); Neutrophils Absolute Auto 15500 /uL (1500-7000); Platelet Count 293 X10^3/uL (150-400); Red Cell Distribution Width 17.6 % (11.6-14.8); White Blood Cell Count 17.3 X10^3/uL (4.5-11.0)
[2024-01-02 09:31] LABS: Ur Creatinine Normal (Normal); Ur Specific Gravity Normal (Normal); Urine Amphetamines Negative (Negative); Urine Barbiturates Negative (Negative); Urine Benzodiazepines Negative (Negative); Urine Cocaine Negative (Negative); Urine MDMA Negative (Negative); Urine Methadone Negative (Negative); Urine Methamphetamines Negative (Negative); Urine Opiates Positive (Negative); Urine Oxycodone Positive (Negative); Urine Phencyclidine Negative (Negative); Urine THC Negative (Negative); Urine Tricyclic Antidepressant Negative (Negative); Urine pH Normal (Normal)
[2024-01-02 09:34] LABS: Amorphous Sediment Urine 2+; Bacteria Urine Moderate (10-30); RBC Urine 30-100/HPF (0-5/HPF); Squamous Epithelial Cell Urine 0-1 /HPF (0-5/HPF); Urine Volume 10mL (spun); WBC Urine 5-10/HPF (0-5/HPF)
[2024-01-02 09:35] LABS: Culture Indicated Urine Specimen Cultured; Mucus Urine 1+ (Negative)
[2024-01-02 09:40] LABS: Alanine Aminotransferase 12 IU/L (<50); Albumin 3.6 g/dL (3.5-5.0); Albumin Globulin Ratio 1.4 (1.0-2.8); Alkaline Phosphatase 79 U/L (38-126); Aspartate Aminotransferase 19 IU/L (17-59); BUN Creatinine Ratio 25.7 (6-22); Bilirubin Total 1.5 mg/dL (0.2-1.3); Blood Urea Nitrogen 18 mg/dL (9-20); Carbon Dioxide 28 mmol/L (22-32); Chloride 100 mmol/L (98-107); Estimated Glomerular Filt Rate > 60 mL/min (>60); Ethanol (ETOH) < 10 mg/dL; Globulin 2.6 g/dL (1.7-4.1); Glucose 105 mg/dL (80-110); HEMOLYSIS < 15 (0-50); Lipase 46 U/L (23-300); Potassium 4.6 mmol/L (3.4-5.1); Sodium 132 mmol/L (137-145); Total Protein 6.2 g/dL (6.3-8.2)
[2024-01-02 09:56] LABS: Lactate (Lactic Acid) 1.2 mmol/L (0.7-2.1)
--- NOTE | 2024-01-02 10:01 | DI.RAD.S_ITS ---
PROCEDURE: XR CHEST 1V INDICATIONS: eval for pna TECHNIQUE: One view of the chest was acquired. COMPARISON: [facility], CR, XR CHEST 1VW, 02/26/2016, 15:14. [facility], CT, CT HEAD/BRAIN WO CON, 01/02/2024, 8:10. FINDINGS: Surgical changes and devices: None. Lungs and pleura: There is a small right-sided pleural effusion. On this semiupright study, no large pneumothorax can be seen. Low lung volumes are noted. This causes a crowded appearance to the lung markings and limits evaluation. Mediastinum: Mediastinal contours appear normal. Heart size is normal. Bones and chest wall: No suspicious bony lesions. Age-appropriate bony degenerative changes are seen. Overlying soft tissues appear unremarkable. IMPRESSION: Small right-sided pleural effusion. Low lung volumes. Dictated by: Martin Olivia M.D. on 01/02/2024 at 9:24 Approved by: Martin Olivia M.D. on 01/02/2024 at 9:25
[2024-01-02] MEDS: SODIUM CHLORIDE 0.9% 1,000 ML 125 ML IV ×2 (10:04→18:18)
[2024-01-02] MEDS: cefTRIAXone 1,000 MG in SODIUM CHLORIDE 0.9% 100 ML 200 MG IV (10:04)
[2024-01-02] MEDS: SODIUM CHLORIDE 0.9% FLUSH 10 ML IV ×2 (10:05→10:06)
[2024-01-02 10:13] LABS: Procalcitonin 0.27 ng/mL (<0.5)
--- NOTE | 2024-01-02 11:23 | PC.NURSE ---
Day shift: Pt in room from ED at apprpox 1115. He knows his name but unable to answer any other questions correctly. Daughter in room and Pt's S.O. as well. VS WNL.RA 97% and afebrile. Report that Pt fell at home this AM and he is high fall risk at this time. Bed alarm is on and call light in reach. Skin ok with bruise on left hand noted. Pt placed in brief as well. Family and Pt oriented to room and call light. Pt is unable to sit up on side of bed on his own. Will continue to monitor.
[2024-01-02] MEDS: LORazepam 2 MG/ML INJ 0.5 MG IV ×2 (12:40→22:25)
[2024-01-02] MEDS: QUETIAPINE 25 MG TABLET PO (13:05)
--- NOTE | 2024-01-02 13:34 | PM.HP.1 ---
History of Present Illness History of Present Illness Date Patient Seen: 01/02/24 Time Patient Seen: 12:45 Chief complaint: GLF hit head Narrative: This very pleasant 73-year-old gentleman who is under the primary care of Dr. Ernesto Inman presents to the ER today for evaluation of progressive worsening confusion. Patient is accompanied by his 2 daughters December who is the DPOA and coal who have been helping care for him over the last several months. Patient lives alone in [facility] and over the last 6 months has not really been leaving his house much and states that his taste has changed so he stopped eating much and stopped drinking alcohol this is proximally 4-6 months ago. He is lost 30 lb since October due to this. He has been undergoing workup for fatigue and weight loss and recently has been diagnosed with presumed metastatic bladder cancer. Patient has had progressive confusion over the last several weeks. In fact he was taking narcotics for pain and was seen on Thursday by Dr. Baron the urologist and had cystoscopy which showed large tumor load in the bladder. Biopsy was not done due to the fact that these were high-grade lesions and biopsy would likely cause bleeding which would further complicate the matter. Patient was found previously to have sacral lesions S1 that were suggestive of metastatic disease in the hopes were that these could be biopsy to get a tissue diagnosis. Patient has met with Oncology and has a follow up with Dr. Inman to discussed options. However he became increasingly confused and was not felt to be safe at home. Workup in the emergency room showed leukocytosis with hypotension and findings suspicious for UTI certainly felt to be contributing to his decreased cognition and mental status changes. He was given Rocephin in the ER admitted to the hospital for further treatment and workup. I was able to discuss the case with Dr. Baron today. In discussion with both of his daughters which patient could not give any meaningful input or comprehension of what we were discussing. Patient has always adamantly been clear that should he develop a terminal illness he would want to partake in with dignity. It is very clear that he does not want to be resuscitated he does not want any heroics and he would not entertain any treatment for his cancer. He has had the weight loss as described above. He has had pain in his back in his right leg over the last 6 months. He previously was recommended to have a cystoscopy approximately a year ago but he declined. Apparently has always had red blood cells in his urine. His daughter has thin basement membrane disease and had workup for this including a kidney biopsy. Patient's daughters are here advocating for patient and want to begin discussion of end of life so that they can carry out their dad's wishes. Past medical history: 1. BPH 2. Migraine headaches 3. Previous history of daily alcohol use and described as heavy by daughters and patient stopped 4-6 months ago 4. Previous tobacco abuse, quit in 1987 5. Gilbert's syndrome 6. Anemia 7. 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 He has been retired for 20 years. He is but has a partner who lives in [place]. He is 2 daughters who are present and supportive. Mai is the OA who lives in [place] and karolina lives in [facility]. They have been caring for him over the last several months Patient lives in a home in and [place] by himself Family history: Dad of a stroke at 82 Mom at 69 is complications from [facility] Review of systems please see HPI Negative for any bright red blood per rectum or abdominal pain or melena or hematochezia or GERD Weight loss positive as above Paranoia over the last several days Agitation Cognitive changes over the last several weeks No fevers, chills or rashes Otherwise 12 point review of systems is negative [facility] Medical History Microscopic hematuria Malignant neoplasm of bladder neck History of right inguinal hernia (04/04/11) History of elevated PSA Microcytic anemia Somatic dysfunction of lower extremity Lipoma of hip Anxiety about health Right leg pain Elevated bilirubin Gilbert syndrome Hx of hematuria BPH w urinary obs/LUTS History of colon polyps Seasonal allergies Migraines Foot pain (~1989) Rosacea Mumps Measles Chicken pox GERD (gastroesophageal reflux disease) (~1999) Surgical History Anesthesia History of skin surgery (~2012) Retinal detachment History of cataract removal with insertion of prosthetic lens (~2013) History of cataract removal with insertion of prosthetic lens (~2012) Status post hernia repair (~1969) Family History Father No problems noted. Mother No problems noted. Social History household members: none Smoking Status: Former smoker alcohol intake: former Meds Home Medications and Allergies Home Medications Medication Instructions Recorded Confirmed Type aspirin 81 mg tablet,delayed 81 mg PO DAILY 01/08/22 01/02/24 History release vitamins A,C,G-fgvj-jottbr 4,296 1 cap PO BID 03/26/23 01/02/24 History mcg-226 mg-90 mg capsule (ICaps AREDS) sumatriptan succinate 100 mg tablet 100 mg PO ONCE #12 tabs 04/15/23 01/02/24 Rx omeprazole 20 mg capsule,delayed See Rx Instructions .Route 09/28/23 01/02/24 Rx release .COMPLEX #90 caps tamsulosin 0.4 mg capsule 0.4 mg PO DAILY 10/27/23 01/02/24 History propranolol 40 mg tablet See Rx Instructions .Route 11/13/23 01/02/24 Rx .COMPLEX #180 tabs peg 3350-electrolytes 236 240 ml PO Q10M #4,000 mL 12/17/23 01/02/24 Rx gram-22.74 gram-6.74 gram-5.86 gram solution (Golytely) oxycodone 5 mg tablet 5 mg PO BID PRN pain #60 tabs 12/22/23 01/02/24 Rx duloxetine 60 mg capsule,delayed 60 mg PO QPM 01/02/24 01/02/24 History release sumatriptan succinate 6 mg/0.5 mL 6 mg SUBCUT Q1-4H 01/02/24 01/02/24 History subcutaneous pen injector Allergies Allergy/AdvReac Type Severity Reaction Status Date / Time Penicillins [PENICILLINS] Allergy Severe BREATHING Verified 12/22/23 11:02 PROBLEMS AND RASH Exam Vital Signs (past 8 hours): - 01/02/24 08:00 01/02/24 08:01 01/02/24 08:01 Temperature Pulse Rate 103 H 103 H Respiratory Rate Blood Pressure 93/64 Pulse Oximetry 92 99 Oxygen Delivery Method 01/02/24 08:06 01/02/24 08:06 01/02/24 08:13 Temperature 98.8 F Pulse Rate 102 H 103 H Respiratory Rate 17 16 Blood Pressure 92/64 92/64 Pulse Oximetry 99 99 Oxygen Delivery Method Room Air 01/02/24 08:39 01/02/24 08:40 01/02/24 08:40 Temperature Pulse Rate 103 H 103 H Respiratory Rate 19 15 Blood Pressure 103/61 Pulse Oximetry 97 98 Oxygen Delivery Method 01/02/24 09:00 01/02/24 09:30 01/02/24 10:00 Temperature Pulse Rate 102 H 98 H 97 H Respiratory Rate 13 17 20 Blood Pressure Pulse Oximetry 99 99 100 Oxygen Delivery Method 01/02/24 10:30 01/02/24 10:35 01/02/24 10:35 Temperature Pulse Rate 95 H 93 H Respiratory Rate 16 16 Blood Pressure 94/55 L Pulse Oximetry 99 97 Oxygen Delivery Method Oxygen Delivery Method Room Air Narrative Exam Narrative: Patient is afebrile with mild tachycardia and O2 sats are normal on room air blood pressure is low with systolic 90s to 100 Patient is alert but not oriented to person or place, patient becomes agitated when I am asking him questions and he is unable to answer them in his attempting to get out of the bed. Patient is pale appears slightly jaundice Mucous membranes are moist and pink Neck: Supple without masses Chest: Clear to auscultation without wheezes rhonchi or crackles but slightly decreased breath sounds right base Cor: Regular rate and rhythm without murmur, distant S1-S2 Abdomen: Positive bowel sounds, soft, nontender, nondistended Extremities no edema moves all extremities well No rashes Neurologic exam is nonfocal other than cognitive changes Objective Labs 01/02/24 09:20 01/02/24 09:20 Labs: Laboratory Results - last 24 hr 01/02/24 01/02/24 01/02/24 09:15 09:15 09:20 WBC 17.3 H RBC 3.30 L Hgb 8.7 L Hct 25.2 L MCV 76.6 L MCH 26.3 MCHC 34.3 RDW 17.6 H Plt Count 293 Neut % (Auto) 90.0 H Lymph % (Auto) 3.3 L Boyle % (Auto) 6.3 Eos % (Auto) 0.2 L Baso % (Auto) 0.2 Neut # (Auto) 81322 H Lymph # (Auto) 600 L Boyle # (Auto) 1100 H Eos # (Auto) 0 Baso # (Auto) 0 Sodium 132 L Potassium 4.6 Chloride 100 Carbon Dioxide 28 BUN 18 Creatinine 0.70 Estimated GFR > 60 BUN/Creatinine Ratio 25.7 H Glucose 105 Lactate 1.2 Calcium 9.0 Total Bilirubin 1.5 H AST 19 ALT 12 Alkaline Phosphatase 79 Total Protein 6.2 L Albumin 3.6 Globulin 2.6 Albumin/Globulin Ratio 1.4 Lipase 46 Procalcitonin 0.27 Urine Color Yellow Urine Appearance Sl cloudy Urine pH 6.0 Normal Ur Specific [place] 1.020 Urine Protein 2+ H Urine Glucose (UA) Negative Urine Ketones Trace H Urine Occult Blood 3+ H Urine Nitrate Negative Urine Bilirubin Negative Urine Urobilinogen 1.0 Ur Leukocyte Esterase Trace H Urine RBC 30-100/hpf H Urine WBC 5-10/hpf H Ur Squamous Epith Cells 0-1 /hpf Amorphous Sediment 2+ Urine Bacteria Moderate (10-30) H Urine Mucus 1+ H Ur Culture Indicated? Specimen cultured Vol Urine Centrifuged 10ml (spun) U Opiates 300ng/mL cut Positive H Ur Oxycodone Screen Positive H Urine Methadone Screen Negative Ur Barbiturates Screen Negative U Tricyclic Antidepress Negative Ur Phencyclidine Scrn Negative Ur Amphetamines Screen Negative U Methamphetamines Scrn Negative Ur MDMA Scrn (Ecstasy) Negative U Benzodiazepines Scrn Negative Urine Cocaine Screen Negative U Marijuana (THC) Screen Negative Urine Specific [place] Normal Ethyl Alcohol < 10 Ur Creatinine Normal Blood Type Antibody Screen 01/02/24 11:33 WBC RBC Hgb Hct MCV MCH MCHC RDW Plt Count Neut % (Auto) Lymph % (Auto) Boyle % (Auto) Eos % (Auto) Baso % (Auto) Neut # (Auto) Lymph # (Auto) Boyle # (Auto) Eos # (Auto) Baso # (Auto) Sodium Potassium Chloride Carbon Dioxide BUN Creatinine Estimated GFR BUN/Creatinine Ratio Glucose Lactate Calcium Total Bilirubin AST ALT Alkaline Phosphatase Total Protein Albumin Globulin Albumin/Globulin Ratio Lipase Procalcitonin Urine Color Urine Appearance Urine pH Ur Specific [place] Urine Protein Urine Glucose (UA) Urine Ketones Urine Occult Blood Urine Nitrate Urine Bilirubin Urine Urobilinogen Ur Leukocyte Esterase Urine RBC Urine WBC Ur Squamous Epith Cells Amorphous Sediment Urine Bacteria Urine Mucus Ur Culture Indicated? Vol Urine Centrifuged U Opiates 300ng/mL cut Ur Oxycodone Screen Urine Methadone Screen Ur Barbiturates Screen U Tricyclic Antidepress Ur Phencyclidine Scrn Ur Amphetamines Screen U Methamphetamines Scrn Ur MDMA Scrn (Ecstasy) U Benzodiazepines Scrn Urine Cocaine Screen U Marijuana (THC) Screen Urine Specific [place] Ethyl Alcohol Ur Creatinine Blood Type A Negative Antibody Screen Negative Assessment & Plan Assessment & Plan narrative: 73-year-old male admitted for confusion with UTI, leukocytosis and hypotension with recent diagnosis of metastatic cancer of unknown primary but suspected to be bladder origin. No tissue has been obtained yet for diagnosis Assessment 1. Cognitive changes suspect multifactorial with some concern for possible dementia with history of previous alcohol use as well as related to underlying malignancy and now worsened with urinary tract infection. Plan: CT scan of head was negative. We will do MRI in a.m. Patient will be admitted to the hospital for further treatment and monitoring. Will continue treating UTI with ceftriaxone and gentle hydration Will continue outpatient duloxetine Will add Seroquel 12.5 mg twice daily to help with agitation and paranoia. Will give lorazepam as needed. Assessment 2. UTI with tachycardia, leukocytosis and hypotension Plan: Continue with gentle hydration and Rocephin. Await blood cultures and urine cultures We will not place a Salazar catheter unless absolutely have to do to concern for causing significant bleeding from the tumor load in the the bladder that could occur with the catheter irritating the tumors as well as collapsing the bladder and then the tumor should be rubbing on the catheter. If he develops urinary retention we would do a straight cath Assessment 3. Metastatic cancer presumed bladder origin with no tissue diagnosis yet. They have met with Urology and I reviewed that note. They met with Oncology as well. At this point the daughters are adamant that patient would want no treatment he does not want to proceed with surgical or chemotherapy. In fact his preference would be to proceed with with dignity. We discussed that patient needs to be cognitively intact in order to proceed with this at this point we will treat the UTI we will provide supportive care and pain relief and treat the confusion and paranoia and pending how he does consider hospice consult. Assessment 4. Hypotension. Patient is not on any antihypertensives. Looks like he is on propranolol as outpatient for migraines we will hold this right now. Suspect this is related to infection as well as overall health. We will continue to monitor. Patient appears asymptomatic Assessment 5. Leukocytosis suspect related to UTI however present a month ago. We will trend. Assessment 6. Mild hyponatremia Plan: Will continue with slow rate of saline and recheck in a.m. Assessment 7. Anemia chronic suspect related to chronic disease, malignancy Code status is DNR 78 minutes was spent with patient discussing with ER physician, nursing staff, patient's family and reviewing his outpatient chart as well discussing with Dr. Baron, formulating a plan and documentation
--- NOTE | 2024-01-02 18:15 | PT-IP ANOTE ---
PT eval order received and EMR reviewed. checked with nurse and pt stated that pt is not ready for PT eval at this time and can check on pt tomorrow. stated that pt has increase confusion and nurse is trying to just keep pt calmed down at this time. will f/u.
[2024-01-02] MEDS: QUETIAPINE 25 MG TABLET 12.5 MG PO (20:10)
[2024-01-02] MEDS: DULOXETINE 30 MG CAPSULE 60 MG PO (20:29)
[2024-01-02] MEDS: TAMSULOSIN 0.4 MG CAPSULE PO (20:31)
[2024-01-02] MEDS: MORPHINE 2 MG/ML INJ IV (22:27)
[2024-01-03] VITALS: BP 95/66; PULSE 120; RESP 17; TEMP 36.4; O2SAT 98
[2024-01-03] MEDS: LORazepam 2 MG/ML INJ 0.5 MG IV ×2 (04:37→11:03)
[2024-01-03] MEDS: SODIUM CHLORIDE 0.9% 1,000 ML 125 ML IV (04:37)
[2024-01-03] MEDS: PANTOPRAZOLE DR 20 MG TABLET PO (05:58)
[2024-01-03 06:48] VITALS: BP 118/80; PULSE 122; RESP 16; TEMP 36; O2SAT 98
[2024-01-03 08:00] VITALS: BP 120/92; PULSE 120; RESP 20; TEMP 36.6; O2SAT 97
[2024-01-03] MEDS: QUETIAPINE 25 MG TABLET 12.5 MG PO ×2 (09:34→21:03)
[2024-01-03] MEDS: VIT C/E/ZN/COPPR/LUTEIN/ZEAXAN CAPSULE 1 CAP PO (09:35)
[2024-01-03] MEDS: DOCUSATE 100 MG CAPSULE PO ×2 (09:35→21:03)
[2024-01-03] MEDS: cefTRIAXone 1,000 MG in SODIUM CHLORIDE 0.9% 100 ML 200 MG IV (09:37)
[2024-01-03] MEDS: OXYCODONE IR 5 MG TABLET PO (11:06)
--- NOTE | 2024-01-03 11:25 | PT-IP ANOTE ---
PT order received and PT reviews chart and checks in on pt. Daughters and DYNAM[employer] AX SOLUTION ARCHITECT in with pt who is in bed with four bed rails up and who has been confused and agitated. Pt does not open eyes with PT and does not agree to mobility or getting OOB with PT. Pt with mumbling that is not understandable. Will con't PT efforts a later date. Thank you for this consult.
[2024-01-03 11:57] VITALS: BP 116/73; PULSE 111; RESP 20; TEMP 37.1; O2SAT 98
--- NOTE | 2024-01-03 14:12 | CM.DANOTE ---
Addendum entered by DILMA Johnson 01/03/24 15:27: ADD: Per , Dtr/DPOA now interested in Hospice at a facility and does not feel home plan would be safe. SW made [facility] referral and request to call Dtr/DPOA December. SW met bedside with Dtr and explained role and she confirms that they cannot stay with pt 30/03 for a home plan but states pt has finances to pay for a facility with Hospice. SW explained Hospice Info Visit and provided the Senior Resource Guidebook for [facility] as Dtr states they are interested in [facility] in [facility] or [facility] with Hospice. SW explained that [facility] does not cover room and board and the potential costs and Dtr states pt can afford it. Still interested in with [facility] and SW encouraged her to ask some questions when [facility] calls. Dtr reviewing the lists and SW can help coordinate with facilities and [facility] tomorrow Mon. BF Original Note: Patient is a 73 yo male who was admitted INPT status on 01/02/24 for Confusion/UTI/Cancer. Pt has [facility] ADV for insurance and his PCP is Dr. Ernesto Inman. EMR was reviewed. Per MD, pt with increased confusion and prior ETOH use but pt has 30 lb unintentional weight loss and newere dx of bladder CA with mets and Urologist saw large tumor in pt's bladder on imaging and not safe for biopsy at this time. PT ordered and pending as pt too confused and unable to follow commands to participate in evaluation today and held and will attempt again tomorrow. Per MD, pt's Dtrs are bedside and trying to support pt's Advanced Directives of with [facility] but explained that pt has to be of sound mind to make that decision and currently too confused. plans to discuss potential of Hospice/Comfort Care and was waiting to see if pt improves from medications to reduce his confusion. Dtrs have been assisting pt at home as he lives alone in [place] but has begun to decline in health and need increased assist over the past few months but Dtrs do not live locally. Pt's Dtr/DPOA December lives in [facility] and Dtr Joleen lives in [facility]. Plan: SW to follow closely for pt progress towards determining tx and likely SNF vs comfort care. DILMA Johnson Discharge Planning/Care Management CM Discharge Assessment Start: 01/03/24 14:06 Freq: Status: Active Protocol: Document 01/03/24 14:06 BF (Rec: 01/03/24 14:11 BF [id number]) Discharge Planning Assessment Assigned Commercial Shrimping Captain DILMA Gar DPOA/Assigned Designee Name Dtr December Contact Information [phone] Advance Directives? Yes Advance Directives on File Yes History Provided By Family Member,Medical Record Has Patient been admitted in last 30 No days? Prior Living Arrangements House Household Members none Comment Two adult Dtrs have been assisting but do not live locally Type of transporation used prior to Relies on Others admit Independent with ADL's Yes: somewhat, has been requiring increased assist Is patient alert and oriented? Yes: increased confusion Needs Assistance With Meal Prep,Managing Medications ,Home Chores / Shopping Caregiver for Another No DME Already Rented / Owned FWW / Walker Comment SNF vs Hospice Barriers to Discharge Yes Comment Pending pt progress and confusion. Discharge Plan Hospice Transportation Arrangement Pending d/c plan, may need BLS vs family vs SNF van Additional Comment Pending tx vs comfort care Whiteboard Updated in Patient Room with Yes name and ext. # of Commercial Shrimping Captain Review Status In Process Please Provide Date Initial DC 01/03/24 Assessment Was Performed Next Review Type Continued Stay Review
[2024-01-03] MEDS: MORPHINE 2 MG/ML INJ IV ×2 (14:58→21:04)
[2024-01-03] MEDS: SODIUM CHLORIDE 0.9% FLUSH 10 ML IV (14:59)
--- NOTE | 2024-01-03 14:59 | PM.PN.1 ---
Subjective Subjective Date Patient Seen: 01/03/24 Time Patient Seen: 14:59 Interval history: Patient is resting in hospital bed periodically moving his legs. Has grimace on his face. Opens his eyes to voice but is not able to respond to questioning. Majority of history is given by daughter. Patient has been very restless all night picking at his legs asking his daughters to take him home and get him out of here. Has had difficulty with him staying in bed and taking his medications. Is drinking some but is not eating much. No diarrhea no respiratory issues Otherwise 12 point review of systems is unremarkable Exam Vital Signs (past 8 hours): - 01/03/24 08:00 01/03/24 11:57 Temperature 98 F 98.8 F Pulse Rate 120 H 111 H Respiratory Rate 20 20 Blood Pressure 120/92 H 116/73 Pulse Oximetry 97 98 Oxygen Flow Rate 0 0 Oxygen Delivery Method Room Air Oxygen Flow Rate 0 Narrative Exam Narrative: Afebrile vital signs are stable except for tachycardia with his heart rate in the 100s low blood pressure stable and improved from yesterday Patient appears pale is sleeping in bed Mucous membranes moist Neck without masses Chest: Clear to auscultation without wheezes rhonchi or crackles Cor: Regular rhythm and rate in the low 100s upper 90s Abdomen: Positive bowel sounds Extremities no edema Skin no rashes Objective Labs 01/02/24 09:20 01/02/24 09:20 [facility] Medical History Microscopic hematuria Malignant neoplasm of bladder neck History of right inguinal hernia (04/04/11) History of elevated PSA Microcytic anemia Somatic dysfunction of lower extremity Lipoma of hip Anxiety about health Right leg pain Elevated bilirubin Gilbert syndrome Hx of hematuria BPH w urinary obs/LUTS History of colon polyps Seasonal allergies Migraines Foot pain (~1989) Rosacea Mumps Measles Chicken pox GERD (gastroesophageal reflux disease) (~1999) Surgical History Anesthesia History of skin surgery (~2012) Retinal detachment History of cataract removal with insertion of prosthetic lens (~2013) History of cataract removal with insertion of prosthetic lens (~2012) Status post hernia repair (~1969) Family History Father No problems noted. Mother No problems noted. Social History household members: none Smoking Status: Former smoker alcohol intake: former Assessment & Plan Assessment & Plan narrative: 73-year-old male admitted for confusion with UTI, leukocytosis and hypotension with recent diagnosis of metastatic cancer of unknown primary but suspected to be bladder origin. No tissue has been obtained yet for diagnosis Assessment 1. Cognitive changes suspect multifactorial with some concern for possible dementia with history of previous alcohol use as well as related to underlying malignancy and now worsened with urinary tract infection. Plan: CT scan of head was negative. At this point urine and blood cultures preliminary are negative. Patient has been afebrile. Patient has become more agitated and increasingly confused and struggling with pain control. I suspect that current cognitive status is related to probable undiagnosed dementia now that he is in another facility and has metastatic cancer we are seeing the cognitive changes. Possible still that there is underlying infection and still having cognitive changes related to this. At this point we will continue treating with Rocephin. Continue with the low-dose Seroquel twice daily. We will control his pain. Assessment 2. UTI with tachycardia, leukocytosis. Repeat labs tomorrow. Still with tachycardia but hypotension is improved. Disc other potential etiologies for tachycardia. Plan: Continue with gentle hydration and Rocephin. We will stop IV fluids at this point because it is bothersome for patient. Await blood cultures and urine cultures We will not place a Salazar catheter unless absolutely have to do to concern for causing significant bleeding from the tumor load in the the bladder that could occur with the catheter irritating the tumors as well as collapsing the bladder and then the tumor should be rubbing on the catheter. If he develops urinary retention we would do a straight cath Assessment 3. Metastatic cancer presumed bladder origin with no tissue diagnosis yet. They have met with Urology and I reviewed that note. They met with Oncology as well. At this point the daughters are adamant that patient would want no treatment he does not want to proceed with surgical or chemotherapy. In fact his preference would be to proceed with with dignity. Discussed with daughter that I am more concerned of his underlying cognitive function may represent possible dementia of some sort. He has been very clear that he would not want any further treatment in both his daughters including his daughter who is the DPOA agree that he does not want treatment or anything that would prolong his life. At this point we will consult hospice. His house is not suitable for him to be at home and he absolutely does not want his daughter's taking care of him. We will look into possibility skilled care facility with hospice if able. We will better manage his pain with p.o. medications and IV medications if needed. Assessment 4. Hypotension improved. We will continue to monitor.. Patient is not on any antihypertensives. Looks like he is on propranolol as outpatient for migraines we will hold this right now. Suspect this is related to infection as well as overall health. We will continue to monitor. Patient appears asymptomatic Assessment 5. Leukocytosis suspect related to UTI however present a month ago. We will trend. Will repeat in a.m.. Assessment 6. Mild hyponatremia Plan: Will continue with slow rate of saline and recheck in a.m. stop IV fluids and will recheck in a.m.. Assessment 7. Anemia chronic suspect related to chronic disease, malignancy Code status is DNR 57 minutes was spent with patient discussing with care management, nursing staff, patient's family, daughter December and reviewing his outpatient chart, formulating a plan and documentation
[2024-01-03] MEDS: fentaNYL 12 MCG/PATCH TOP (16:26)
[2024-01-03 19:59] VITALS: BP 136/90; PULSE 75; RESP 18; TEMP 36.7; O2SAT 98
[2024-01-03] MEDS: TAMSULOSIN 0.4 MG CAPSULE PO (21:03)
[2024-01-03] MEDS: SENNOSIDES 8.6 MG TABLET 17.2 MG PO (21:03)
[2024-01-04] MEDS: SODIUM CHLORIDE 0.9% FLUSH 10 ML IV
[2024-01-04] MEDS: MORPHINE 2 MG/ML INJ IV (02:00)
[2024-01-04] MEDS: OXYCODONE IR 5 MG TABLET PO ×3 (05:20→21:50)
[2024-01-04] MEDS: LORazepam 0.5 MG TABLET PO ×3 (05:21→16:28)
[2024-01-04 06:07] LABS: Add Manual Diff / Slide Review NO; Basophils Absolute Auto 0 /uL (0-100); Basophils Percent Auto 0.2 % (0-2); Eosinophils Absolute Auto 0 /uL (0-450); Eosinophils Percent Auto 0.3 % (2-4); Hemoglobin 9.9 g/dL (13.5-17.5); Lymphocytes Absolute Auto 700 /uL (1100-4500); Lymphocytes Percent Auto 5.4 % (25-40); Mean Corpuscular HGB Conc 34.2 % (30-36); Mean Corpuscular Hemoglobin 26.5 PG (26-34); Mean Corpuscular Volume 77.4 fL (80-100); Monocytes Absolute Auto 1000 /uL (0-900); Monocytes Percent Auto 7.3 % (3-14); Neutrophils Absolute Auto 12000 /uL (1500-7000); Neutrophils Percent Auto 86.8 % (50-75); Platelet Count 323 X10^3/uL (150-400); Red Blood Cell Count 3.75 X10^6/uL (4.5-5.9); Red Cell Distribution Width 17.5 % (11.6-14.8); White Blood Cell Count 13.8 X10^3/uL (4.5-11.0)
[2024-01-04 06:13] LABS: Blood Urea Nitrogen 10 mg/dL (9-20); Calcium 8.8 mg/dL (8.4-10.2); Carbon Dioxide 24 mmol/L (22-32); Chloride 104 mmol/L (98-107); Estimated Glomerular Filt Rate > 60 mL/min (>60); Glucose 111 mg/dL (80-110); HEMOLYSIS < 15 (0-50); Potassium 3.5 mmol/L (3.4-5.1); Sodium 136 mmol/L (137-145)
[2024-01-04 07:00] VITALS: BP 117/76; PULSE 125; RESP 18; O2SAT 97
--- NOTE | 2024-01-04 07:54 | P.PN_ITS ---
Subjective Subjective Date Patient Seen: 01/04/24 Time Patient Seen: 08:09 Interval history: Patient seen and evaluated this morning. Patient pulled out his IV in the middle the night with some confusion. Reviewed care with nursing staff. Patient receiving oral oxycodone and Ativan. Sleeping a little bit restless. No respiratory distress and vital signs are stable. Discussed care with nursing as well as case management. Patient is unresponsive to me and sleeping. Exam Vital Signs (past 8 hours): Oxygen Delivery Method Room Air Oxygen Flow Rate 0 Narrative Exam Narrative: Gen.: Patient is sedated sleeping a little bit of tremors HEENT: Pupils equal round and reactive or mucosa is dry neck is supple Cardio: [S1-S2 regular rate and rhythm no murmurs appreciated.] Respiratory: Mild increased work of breathing Abdomen: Soft nontender Extremities: Trace edema Neurologic: No focal deficits Objective Labs 01/04/24 05:20 01/04/24 05:20 Labs: Laboratory Results - last 24 hr 01/04/24 05:20 WBC 13.8 H RBC 3.75 L Hgb 9.9 L Hct 29.0 L MCV 77.4 L MCH 26.5 MCHC 34.2 RDW 17.5 H Plt Count 323 Neut % (Auto) 86.8 H Lymph % (Auto) 5.4 L Wise % (Auto) 7.3 Eos % (Auto) 0.3 L Baso % (Auto) 0.2 Neut # (Auto) 59191 H Lymph # (Auto) 700 L Wise # (Auto) 1000 H Eos # (Auto) 0 Baso # (Auto) 0 Sodium 136 L Potassium 3.5 Chloride 104 Carbon Dioxide 24 BUN 10 Creatinine 0.50 L Estimated GFR > 60 BUN/Creatinine Ratio 20.0 Glucose 111 H Calcium 8.8 PFSH Medical History Microscopic hematuria Malignant neoplasm of bladder neck History of right inguinal hernia (04/04/11) History of elevated PSA Microcytic anemia Somatic dysfunction of lower extremity Lipoma of hip Anxiety about health Right leg pain Elevated bilirubin Gilbert syndrome Hx of hematuria BPH w urinary obs/LUTS History of colon polyps Seasonal allergies Migraines Foot pain (~1989) Rosacea Mumps Measles Chicken pox GERD (gastroesophageal reflux disease) (~1999) Surgical History Anesthesia History of skin surgery (~2012) Retinal detachment History of cataract removal with insertion of prosthetic lens (~2013) History of cataract removal with insertion of prosthetic lens (~2012) Status post hernia repair (~1969) Family History Father No problems noted. Mother No problems noted. Social History household members: none Smoking Status: Former smoker alcohol intake: former Assessment & Plan Assessment and plan (1) Altered mental status: Qualifiers: Altered mental status type: delirium Qualified Code(s): R41.0 - Disorientation, unspecified Status: Acute (2) Bladder cancer: Qualifiers: Bladder location: unspecified site Qualified Code(s): C67.9 - Malignant neoplasm of bladder, unspecified Status: Acute (3) Malignant neoplasm of bladder neck: Status: Acute (4) Bladder cancer metastasized to bone: Problem details: 12/21/23 CT chest/abdomen w/o contrast IMPRESSION: 1. There are numerous polypoid bladder masses, consistent with multifocal bladder cancer. 2. Large right sacral metastatic destructive lesion with involvement of S1 on S2 in impingement on these nerve roots. 3. Fairly impressive splenomegaly. Status: Chronic Plan Metastatic cancer unknown primary suspect bladder in origin on rate recent discussion with CT scan and urologist no tissue biopsy has been done yet for diagnosis. As per family care conference patient would not desire aggressive treatment of his cancer. As per patient and family wishes they are moving towards comfort care and hospice care at a care facility. Discussed with case management this morning ongoing plan. Daughter heavily involved in care management decisions as patient is unable to decide for himself. She is listed as the power of litigation attorney associate. Acute metabolic encephalopathy multifactorial with some concerns of underlying dementia previous alcohol use exacerbated by urinary tract infection. CT scan of his head is negative. Continues to be confused and agitated sedated by lorazepam and oxycodone now that his IV has been removed by the patient. Will continue with oral pain control and sedation for comfort. Urinary tract infection with leukocytosis and tachycardia. Continue with Rocephin. As his IV has been removed we will stop IV hydration at this point. Intermittent catheterization as needed for comfort support and urinary retention Urinary tract infection potential possibility on Rocephin white blood cell count is now normal. Hypotension improved with fluids. Continue to monitor. Hyponatremia. Mild. Received IV fluids. Sodium level is not critical. Anemia chronic disease due to malignancy. Hemoglobin hematocrit is stable Code status do not resuscitate Plan today. Keep comfortable as possible and sedated moving towards comfort care. Anticipate working with hospice and dialysis social worker for placement at care facility as per patient wishes and daughter who is DPOA. PROFEE Charge codes Subsequent inpatient/observation care: [id number]
[2024-01-04] MEDS: CEFDINIR 300 MG CAPSULE PO ×2 (09:04→20:15)
[2024-01-04] MEDS: QUETIAPINE 25 MG TABLET 12.5 MG PO ×2 (09:04→20:16)
[2024-01-04] MEDS: PANTOPRAZOLE DR 20 MG TABLET PO (09:10)
[2024-01-04] MEDS: VIT C/E/ZN/COPPR/LUTEIN/ZEAXAN CAPSULE 1 CAP PO (09:10)
[2024-01-04] MEDS: DOCUSATE 100 MG CAPSULE PO ×2 (09:10→20:16)
--- NOTE | 2024-01-04 11:35 | PT.IIE ---
Current Diagnoses Malignant neoplasm of bladder neck (01/02/24) Malignant neoplasm of bladder, unspecified (01/02/24) Secondary malignant neoplasm of bone (01/02/24) Urinary tract infection, site not specified (01/02/24) Disorientation, unspecified (01/02/24) Surgical History (Last Reviewed 12/29/23 @ 09:36 by Ivon Baron MD) Anesthesia History of cataract removal with insertion of prosthetic lens (~2012) History of cataract removal with insertion of prosthetic lens (~2013) History of skin surgery (~2012) Retinal detachment Status post hernia repair (~1969) Medical History (Last Reviewed 01/02/24 @ 13:35 by Asuncion Torres MD) Anxiety about health BPH w urinary obs/LUTS Chicken pox Elevated bilirubin Foot pain (~1989) GERD (gastroesophageal reflux disease) (~1999) Gilbert syndrome History of colon polyps History of elevated PSA History of right inguinal hernia (04/04/11) Hx of hematuria Lipoma of hip Malignant neoplasm of bladder neck Measles Microcytic anemia Microscopic hematuria Migraines Mumps Right leg pain Rosacea Seasonal allergies Somatic dysfunction of lower extremity Physical Therapy Inpatient Evaluation/Re-Eval M1 PT/OT-IP Prior Functional Status Start: 01/03/24 09:33 Freq: NEEDED Status: Active Protocol: Document 01/04/24 09:05 MB (Rec: 01/04/24 09:45 MB [id number]) Medical Review Prior Functional Status Medical History Reviewed Yes Communication Unsure baseline communication and diet. Significant other tends to state several times that he cannot return to prior level of living and PT con't to try to redirect so that PT can get better picture of baseline situation Mobility and Gait Significant other states that for at least two weeks, he was holding onto her for mobility and that he has a rollator that is too bulky for them. She states that they just came back from [place] prior to his admission Activities of Daily Living and IADL's Significant other is not clear on when pt was I and when PT offers, two months ago? she states he was I and driving two months ago Social History Household Members significant other Living Arrangements House Number of Stairs To Enter/Railing? 8 steps with rail to enter and significant other con't to state that he will not be able to do this now. This appears to be info about their home here in [place] Home Environment Standard Height Toilet,Walk in Shower,Tub/Shower Home Equipment Four Wheel Walker Employment Status Retired Additional Social History Comment Once again, difficult to gather all information from significant other and pt is too confused to answer any questions today M2 PT-IP Current Condition Start: 01/03/24 09:33 Freq: NEEDED Status: Active Protocol: Document 01/04/24 09:05 MB (Rec: 01/04/24 09:45 MB [id number]) Physical Therapy Current Condition Current Condition Evaluation Date 01/04/24 Treatment Diagnosis GLF, hit head, confusion, metastatic cancer M3 PT-IP Subjective Start: 01/03/24 09:33 Freq: NEEDED Status: Active Protocol: Document 01/04/24 09:05 MB (Rec: 01/04/24 09:45 MB [id number]) Subjective Physical Therapy Visit Type Type Initial Evaluation Visit Start Time 09:05 Visit Stop Time 09:25 Number of CUFF FOLDER Visits 0 Physical Therapy Visit Comments Patient Comments Pt is hypoverbal and significant other tends to answer all questions. M4 PT-IP Mobility and Gait Start: 01/03/24 09:33 Freq: NEEDED Status: Active Protocol: Document 01/04/24 09:05 MB (Rec: 01/04/24 11:34 MB [id number]) PT-Bed Mobility Assessment Supine to Sit Supine to Sit Minimal Assistance,1 Person Assistance,Head of Bed Elevated,Bedrails Scooting Scooting to Edge of Bed Standby Assistance,Minimal Assistance PT-Transfer Assessment Sit to and From Stand Sit to and from Stand Moderate Assistance,1 Person Assistance,Use of Upper Extremities Equipment Transfer Assistive Device Gait Belt,Front Wheeled Walker Orthotic/Prosthetic Devices or Brace: No Transfers Transfer Destination Chair Transfer Technique Stepping Transfer Ability Level of Assist Moderate Assistance,1 Person Assistance,Use of Upper Extremities Comments Mobility Comments Pt with confusion and he is hypoverbal and significant other tends to speak for pt and appears concerned about d/ c location/disposition. Pt follows 1-step simple commands for bed mobility and is dependent for changing brief. PT provides verbal and tactile cues for reaching for right rail. Gait Assessment Gait Gait Assistance Required: Moderate Assistance Distance (Feet) 2 Able to Maintain Weight Bearing Status Yes During Gait Assistive Devices Assistive Device Gait Belt,Front Wheeled Walker Orthotic/Prosthetic Devices or Brace: No Gait Deviations General Gait Pattern Decreased Stride Length, Decreased Feet Clearance, Flexed Trunk,Step-to Gait,Wide Based Gait Factors Limiting Gait Function Factors Limiting Gait Function Decreased Activity Tolerance, Decreased Strength,Difficulty Following Directions, Incoordination,Poor Balance, Poor Safety Awareness Comments Gait Comments Pt has trouble following commands and PT must assist with moving walker and stepping back to chair. Left up in chair with significant other nearby and alarm attached to gown PT-Balance Assessment Sitting Balance and Reactions Static Sitting Balance Ability Fair Dynamic Sitting Balance Ability Fair Standing Balance and Reactions Static Standing Balance Ability Fair Dynamic Standing Balance Ability Fair Device Used RW M5 PT-IP Objective Assessments Start: 01/03/24 09:33 Freq: NEEDED Status: Active Protocol: Document 01/04/24 09:05 MB (Rec: 01/04/24 11:34 MB [id number]) Orientation Orientation/Cognition Level of Alertness Confusional State Safety Awareness Decreased Safety Awareness Comments Pt does not answer any questions Gross Range of Motion Upper Extremity ROM Assessment Within Functional Limits Lower Extremity ROM Assessment Within Functional Limits Strength Comments Strength Comments Range and strength appear normal and pt does not follow commands Other Assessments Other Other Assessments Pt does not follow any coordination or sensory commands M6 PT-IP Treatment Start: 01/03/24 09:33 Freq: NEEDED Status: Active Protocol: Document 01/04/24 09:05 MB (Rec: 01/04/24 11:34 MB [id number]) Physical Therapy Treatment Education Education Provided Weight Bearing Status,Safety M7 PT-IP Assessment and Plan Start: 01/03/24 09:33 Freq: NEEDED Status: Active Protocol: Document 01/04/24 09:05 MB (Rec: 01/04/24 11:34 MB [id number]) PT Summary Assessment and Plan Potential Rehabilitation Potential Poor Status of Condition at Evaluation Unstable Summary Impairments Pain,Balance,Coordination, Cognition,Bed Mobility, Transfers,Gait,Activity Tolerance Progress Towards Goals Slow Progress due to Medical Issues,Slow Progress due to Activity Tolerance Assessment Summary Pt requires increased cues and encouragement for mobility and he presents with confusion today and no agitation. He requires min A for bed mobility with use of HOB and rails and mod A for mobility/ stepping with RW to get to the chair from the bed Goals Bed Mobility Goal Standby Assistance Transfer Goal Contact Guard Assistance,Front Wheeled Walker Gait Goal Standby Assistance,Front Wheel Walker Gait Distance 75 Other Goals If appropriate, pt will ascend and descend 8 steps with rail and use of LRAD and no more than CGA to allow safe home entrance. Days to Meet Goals 5 Frequency of Treatment Frequency Of Treatment Once a Day Treatment Plan Physical Therapy Treatment Plan Bed Mobility Training,Transfer Training,Gait Training, Therapeutic Exercise,Balance Retraining,Discharge Planning, Neuromuscular Re-ed, Coordination Retraining Weight Bearing Status Weight Bearing Status Weight Bear as Tolerated Recommendations To Nursing Amount of Assist Needed 2 Person Assist Discharge Recommendations Other Discharge Recommendations Facility with hospice assistance per case management and this sounds like an appropriate plan, he will need 24 hour care at d/c. Transportation Needs at Discharge Wheelchair/Cabulance,Stretcher /Ambulance
--- NOTE | 2024-01-04 13:49 | CM.DPC ---
DCP Comfort Care Planning: Per MD, pt continues to decline further tx and wants comfort measures and PT able to get pt up to the bedside chair today for a brief while. SHARLA called [facility] and spoke to Belkis and she confirms she received the referral and has scheduled Info Visit with Dtr December today at 1200 and they have openings for this week for new intakes. SW spoke to Dtr December after Hospice Info Visit and she confirms she is in agreement with signing Hospice consents but decision to focus on facility placement at [facility] in [facility] and not trying for [facility]. Dtr aware that facilities will likely contact her with further questions and then discuss financial costs. Per Dtr/DPOA December's request for assist with LTC placement, SW contacted the following facilities: [facility]- cannot meet pt's needs [facility]- have openings and willing to review. Faxed [facility] to review. [facility]- they have openings in both [facility] and memory care and willing to review. Faxed [facility] [phone] and they will review. [facility] confirms they have openings and willing to review and secure emailed to [email or web address]. DILMA Johnson
[2024-01-04] MEDS: DULOXETINE 30 MG CAPSULE 60 MG PO (16:56)
[2024-01-04] MEDS: SENNOSIDES 8.6 MG TABLET 17.2 MG PO (20:16)
[2024-01-04] MEDS: TAMSULOSIN 0.4 MG CAPSULE PO (20:16)
[2024-01-04 20:20] VITALS: BP 139/85; PULSE 108; RESP 20; TEMP 36.7; O2SAT 98
[2024-01-05] MEDS: LORazepam 0.5 MG TABLET PO ×3 (02:35→16:45)
[2024-01-05] MEDS: OXYCODONE IR 5 MG TABLET PO ×4 (04:56→20:40)
[2024-01-05 07:00] VITALS: BP 129/88; PULSE 98; RESP 18; TEMP 36.8; O2SAT 97
[2024-01-05] MEDS: QUETIAPINE 25 MG TABLET 12.5 MG PO (08:46)
[2024-01-05] MEDS: CEFDINIR 300 MG CAPSULE PO ×2 (08:47→20:39)
[2024-01-05] MEDS: VIT C/E/ZN/COPPR/LUTEIN/ZEAXAN CAPSULE 1 CAP PO (08:51)
[2024-01-05] MEDS: DOCUSATE 100 MG CAPSULE PO ×2 (08:51→20:39)
--- NOTE | 2024-01-05 10:28 | PM.PN.1 ---
Subjective Subjective Date Patient Seen: 01/05/24 Time Patient Seen: 10:28 Interval history: Patient seen and evaluated this morning sitting up at the bedside reviewed care with nurses. Patient quite disoriented last night with some agitation. Sitting in his chair this morning. Family friend is at the bedside who recognizes. He has not complaining of any pain. Nursing staff said they had a little bit of breakfast this morning urination is incontinent. Vital signs have been stable. Exam Vital Signs (past 8 hours): - 01/05/24 07:00 Temperature 98.2 F Pulse Rate 98 H Respiratory Rate 18 Blood Pressure 129/88 Pulse Oximetry 97 Oxygen Flow Rate 0 Oxygen Delivery Method Room Air Oxygen Flow Rate 0 Narrative Exam Narrative: Gen.: Patient is alert and responding he is confused and disoriented. HEENT: Pupils equal round and reactive or mucosa is moist neck is supple Cardio: Regular rate and rhythm Respiratory: Normal respiratory effort Abdomen: Soft nontender no rebound or guarding Extremities: Full range of motion Objective Labs 01/04/24 05:20 01/04/24 05:20 [facility] Medical History Microscopic hematuria Malignant neoplasm of bladder neck History of right inguinal hernia (04/04/11) History of elevated PSA Microcytic anemia Somatic dysfunction of lower extremity Lipoma of hip Anxiety about health Right leg pain Elevated bilirubin Gilbert syndrome Hx of hematuria BPH w urinary obs/LUTS History of colon polyps Seasonal allergies Migraines Foot pain (~1989) Rosacea Mumps Measles Chicken pox GERD (gastroesophageal reflux disease) (~1999) Surgical History Anesthesia History of skin surgery (~2012) Retinal detachment History of cataract removal with insertion of prosthetic lens (~2013) History of cataract removal with insertion of prosthetic lens (~2012) Status post hernia repair (~1969) Family History Father No problems noted. Mother No problems noted. Social History household members: significant other Smoking Status: Former smoker alcohol intake: former Assessment & Plan Assessment and plan (1) Bladder cancer: Qualifiers: Bladder location: unspecified site Qualified Code(s): C67.9 - Malignant neoplasm of bladder, unspecified Status: Acute (2) Altered mental status: Qualifiers: Altered mental status type: delirium Qualified Code(s): R41.0 - Disorientation, unspecified Status: Acute Plan Metastatic cancer unknown primary suspect bladder in origin on rate recent discussion with CT scan and urologist no tissue biopsy has been done yet for diagnosis. Continue with comfort care at this time. Still on oral antibiotics and oral medication. Had more agitation last night. But maximizing comfort with pain medication Ativan and Seroquel. Daughter working with Care management and case management on hospice with care facility for ongoing help with hospice and maximizing comfort as per patient and family wishes. Acute metabolic encephalopathy multifactorial with some concerns of underlying dementia previous alcohol use exacerbated by urinary tract infection. CT scan of his head is negative. Patient is less sedated than yesterday. Some agitation at night but redirectable this morning. Continue with fentanyl patch pain medication and Seroquel as needed. Urinary tract infection with leukocytosis and tachycardia. On oral Omnicef. Hypotension improved with fluids. Hyponatremia. Chronic and stable Anemia chronic disease due to malignancy. Hemoglobin hematocrit is stable Code status do not resuscitate Plan today. Discharge when bed available for safe discharge with hospice comfort care. Anticipate discharge tomorrow PROFEE Charge codes Subsequent inpatient/observation care: [id number]
--- NOTE | 2024-01-05 11:21 | PT-IP ANOTE ---
Per nursing pt is not appropriate for PT at this time.
--- NOTE | 2024-01-05 13:21 | CM.DPC ---
DCP Hospice Planning: SW called following facilities regarding potential review and placement: [facility]: called Dtr and were reviewing [facility]: will call Dtr and their team is still reviewing and will try to get an answer. [facility]: full, at capacity right now. [facility]: cannot meet pt's needs [facility]: has a shared room, spoke to Dtr and Dtr toured and Dtr does not feel it will be a good fit. [facility]: Spoke to [facility] they can accept, Dtr and Nirmala spoke and Dtr in agreement for pt to d/c to [facility]. SHARLA called [facility] and updated her and Belkis kindly spoke to [facility] at [facility] and coordinated plan of stat DME delivery to [facility] today 01/05/24 this afternoon and [facility] can do SOC with their RN tomorrow 01/06/24 between [id number]. [facility] at [facility] states their facility van is not available to transport pt tomorrow. Pt has waxed and waned in his alertness and has been able to sit in bedside chair but still with some confusion. Unclear if pt will be able to transport via private vehicle tomorrow pending his mentation vs non-emergency ambulance. SHARLA completed BLS form in case ambulance transport needed at d/c and signed POLST form for [employer] and Dtr aware and plans to sign or give verbal signature tomorrow Wed if she cannot be bedside. Dtr aware of private vehicle vs ambulance transport pending pt's mentation. Plan: Discharge tomorrow 01/06/24 to [facility] around 1300 (private vehicle vs BLS) with [facility] to open around [id number] [facility]. DILMA Johnson
[2024-01-05] MEDS: DULOXETINE 30 MG CAPSULE 60 MG PO (18:00)
[2024-01-05 19:00] VITALS: BP 136/80; PULSE 74; RESP 18; TEMP 36.6; O2SAT 96
[2024-01-05] MEDS: SENNOSIDES 8.6 MG TABLET 17.2 MG PO (20:39)
[2024-01-05] MEDS: QUETIAPINE 25 MG TABLET 50 MG PO (20:39)
[2024-01-05] MEDS: TAMSULOSIN 0.4 MG CAPSULE PO (20:39)
[2024-01-06] MEDS: LORazepam 0.5 MG TABLET 1 MG PO (06:31)
[2024-01-06] MEDS: VIT C/E/ZN/COPPR/LUTEIN/ZEAXAN CAPSULE 1 CAP PO (08:45)
[2024-01-06] MEDS: QUETIAPINE 25 MG TABLET 50 MG PO (08:45)
[2024-01-06] MEDS: ACETAMINOPHEN 325 MG TABLET 650 MG PO (08:45)
[2024-01-06] MEDS: DOCUSATE 100 MG CAPSULE PO (08:45)
[2024-01-06] MEDS: CEFDINIR 300 MG CAPSULE PO (08:45)
[2024-01-06 08:47] VITALS: BP 125/90; PULSE 106; RESP 16; TEMP 36.5; O2SAT 98
[2024-01-06] MEDS: SENNOSIDES 8.6 MG TABLET 17.2 MG PO (09:08)
--- NOTE | 2024-01-06 09:40 | P.DS_ITS ---
History of Present Illness History of Present Illness Chief complaint: GLF hit head Discharge Providers Provider Date of admission: 01/02/24 10:19 Discharge Date: 01/06/24 Primary care physician: Ernesto Inman MD Consults: 01/02/24 08:28 Consult to CUSTOMER INSIGHT ANALYST - P[employer] Making Machine Operator Stat Comment: 01/02/24 10:06 Consult to Physician Stat Comment: Consulting Provider: Asuncion Torres Reason for consultation: admission Has provider been notified: Yes 01/02/24 10:07 Consult to Physician Stat Comment: Consulting Provider: Ernesto Inman Reason for consultation: admission Has provider been notified: No 01/02/24 13:26 Consult to Discharge Planning Routine Comment: Consult to Physical Therapy Evaluate & Treat Comment: Physician Instructions: Evaluate and Treat Discharge provider: Ernesto Young MD Summary Hospital Course Discharge Diagnosis: Metastatic cancer presumed bladder primary. Urology involvement no tissue diagnosis yet. Patient was admitted to the hospital because of mental status changes. Patient wishes and D p.o. a wishes for comfort care no aggressive interventional treatment. Metabolic encephalopathy acute Urinary tract infection Acute hypo tension Hyponatremia Anemia of chronic disease Hospital Course: Patient was admitted to the hospital because of mental status changes hypoxia patient's workup included CT scan laboratory evaluation. Recent new diagnosis of bladder cancer. Patient and patient family wishes for nonaggressive treatment. During hospital stay he was maintained on comfort care. With initially IV fluids and IV pain management. This was eventually transitioned to oral medication. During his hospital stay urinary tract infection was treated with IV antibiotics switched to oral antibiotics. Due to patient and family wishes. Patient's care was maximized more to comfort although he continue with antibiotics. Discharge planning with patient and family was for patient to go to assisted living or fpc facility with hospice care. Exam Vital Signs (past 8 hours): - 01/06/24 08:47 Temperature 97.7 F Pulse Rate 106 H Respiratory Rate 16 Blood Pressure 125/90 Pulse Oximetry 98 Oxygen Delivery Method Room Air Oxygen Flow Rate 0 Objective Labs 01/04/24 05:20 01/04/24 05:20 [facility] Medical History Microscopic hematuria Malignant neoplasm of bladder neck History of right inguinal hernia (04/04/11) History of elevated PSA Microcytic anemia Somatic dysfunction of lower extremity Lipoma of hip Anxiety about health Right leg pain Elevated bilirubin Gilbert syndrome Hx of hematuria BPH w urinary obs/LUTS History of colon polyps Seasonal allergies Migraines Foot pain (~1989) Rosacea Mumps Measles Chicken pox GERD (gastroesophageal reflux disease) (~1999) Surgical History Anesthesia History of skin surgery (~2012) Retinal detachment History of cataract removal with insertion of prosthetic lens (~2013) History of cataract removal with insertion of prosthetic lens (~2012) Status post hernia repair (~1969) Family History Father No problems noted. Mother No problems noted. Social History household members: significant other Smoking Status: Former smoker alcohol intake: former Discharge Plan Discharge Plan Patient Disposition: SNF Discharge orders & Medications Prescriptions: Continued tamsulosin 0.4 mg capsule 0.4 mg PO DAILY propranolol 40 mg tablet See Rx Instructions .ROUTE .COMPLEX Qty: 180 0RF Rx Instructions: Take 1/2 tablet by mouth TWICE daily for 7 days, then increase to one tablet TWICE daily; peg 3350-electrolytes [Golytely] 236-22.74-6.74 -5.86 gram recon soln 240 ml PO Q10M Qty: 4000 0RF Rx Instructions: take as directed by Physician aspirin 81 mg tablet,delayed release (DR/EC) 81 mg PO DAILY ICaps AREDS 4,296 mcg-226 mg-90 mg capsule 1 cap PO BID duloxetine 60 mg capsule,delayed release(DR/EC) 60 mg PO QPM Discontinued oxycodone 5 mg tablet 5 mg PO BID PRN (Reason: pain) Qty: 60 0RF sumatriptan succinate 100 mg tablet 100 mg PO ONCE Qty: 12 11RF omeprazole 20 mg capsule,delayed release(DR/EC) See Rx Instructions .ROUTE .COMPLEX Qty: 90 3RF Dose Instruction: TAKE 1 CAPSULE(20 MG) BY MOUTH EVERY DAY Rx Instructions: TAKE 1 CAPSULE(20 MG) BY MOUTH EVERY DAY sumatriptan succinate 6 mg/0.5 mL pen injector 6 mg SUBCUT Q1-4H Follow up/Referrals: Ernesto Inman MD [Primary Care Provider] - Visit Report/Discharge Packet Stand Alone Forms: Patient Portal/API Discharge Data Primary Care Provider: Ernesto Inman
--- NOTE | 2024-01-06 10:29 | CM.DPC ---
DCP Cont. Reviewed EMR and team rounds for status updates. Pt is medically cleared for d/c to [facility] today, BLS will transport him to [facility] at 1:00pm today, d/c clinicals faxed to [facility]. SIDE DOOR MAN will also obtain dtr's signature on the POLST form prior to d/c.
--- NOTE | 2024-01-06 15:27 | PC.NURSE ---
Discharge note: Patient discharged to [facility] via BLS. Report given to transport team. [facility]. Discharge paper work, POLST, and Prescriptions handed to transport team.
== END 2024-01-06 13:15 | DRG 689 ==
LOC: ED 09:54 → AC 10:19
PROVIDERS: Family Medicine; Admitting Provider Family Medicine; Emergency Provider Emergency Medicine; PCP Family Medicine; Referring Provider Emergency Medicine; Visit Provider Family Medicine
DX: N39.0 Urinary tract infection, site not specified (principal); G93.41 Metabolic encephalopathy; E87.1 Hypo-osmolality and hyponatremia; C79.51 Secondary malignant neoplasm of bone; C67.9 Malignant neoplasm of bladder, unspecified; I95.9 Hypotension, unspecified; C67.5 Malignant neoplasm of bladder neck; D63.0 Anemia in neoplastic disease; N40.1 Benign prostatic hyperplasia with lower urinary tract symptoms; Z66 Do not resuscitate; Z51.5 Encounter for palliative care; Z87.891 Personal history of nicotine dependence
CPT/HCPCS: 36415; 70450; 71045; 80048; 80053; 80305; 80320; 81001; 83605; 83690; 84145; 85025; 86850; 86900; 86901; 87040; 87086; 93005; 96365; 97161; 99233; 99238; 99284; J0696; J2060; J2270